=== PATIENT | female | born 1960 | race Caucasian/White ===

== ENCOUNTER 2017-03-10 14:52 | Inpatient (IN) | payer MEDICARE ==
[2017-03-10] MEDS: CYCLOBENZAPRINE 10MG TABLET PO SCH ×2 (16:59→22:16)
[2017-03-10] MEDS: GABAPENTIN 300 MG CAPSULE PO SCH ×2 (16:59→22:16)
[2017-03-10] MEDS: FUROSEMIDE 20 MG TABLET PO SCH (16:59)
[2017-03-10] MEDS: HYDROCODONE/APAP 10/325 TABLET PO SCH ×2 (16:59→22:16)
[2017-03-10] MEDS: WARFARIN 5 MG TAB PO SCH (18:27)
[2017-03-10] MEDS: WARFARIN 1 MG TABLET PO SCH (18:27)
[2017-03-10] MEDS: POTASSIUM CHLORIDE 20 MEQ TABLET PO SCH (22:15)
[2017-03-10] MEDS: ROPINIROLE HCL 1 MG TABLET PO SCH (22:16)
[2017-03-10] MEDS: CLONAZEPAM 1MG TABLET PO SCH (22:16)
--- NOTE | 2017-03-11 06:49 | History & Physical ---
History of Present Illness - Date Date of Service for History & Physical: 03/11/17 - History of Present Illness Admitting Diagnosis: Cellulitis of right proximal, lateral thigh with unerlying seroma and drain placement following hip replacement History of Present Illness: Mrs. Hagan is a 56 y/o female who is admitted to swing bed after having a protracted history of seroma of the right hip. Her course started approximately 4 years ago when she had bilateral hip replacement and subsequent revisions. She then began to develop a seroma of the right hip which saw a progressive growth since that time. Initially she went to her PCP who recommended conservative management hoping for spontaneous resolution. When there was no resolution the patient went to IR to have a drain inserted (02/22) into the pocket which eventually became infected. She had fevers, chills and a cellulitis of the right lower extremity She describes right hip pain and significant erythema surrounding the area with extension to the distal extremity. The patient was admitted to [facility] on 03/02 and was noted to have elevated white count, CRP and ESR. Xrays of the right hip showed stable implant. She was started on broad spectrum abx Vancomycin/Ceftriaxone IV, eventually changed to Vancomycin/Zosyn and cultures drawn grew MRSA. The drain was kept in place and put to suction with minimal collection while admitted. She was seen by ID while admitted and the decision was made to change abx to Daptomycin 4mg IV for another eight weeks. The patient is also to follow up with IR for drain management. She is admitted to swing [facility] for continued antibiotic therapy and rehabilitation. In addition to the above mentioned history the patient has history of DVT/PE on Coumadin, hypothyroidism, depression, anxiety, fibromyalgia, chronic hep c s/p therapy, protein s deficiency and remote hx of IVDA. General - Cognitive Patterns Speech: Normal Thought Process: Intact Thought Content: Normal Orientation: Oriented x3 - Communication Preferred Language?: [place] Resident Assistant Required: No Level of Education: College Preferred Method of Learning: Seeing, Doing Comprehension Ability: No Impairment Able to Read: Yes Able to Write: Yes Select best description of speech pattern: Clear Speech Ability to express ideas and wants: Understood Understanding verbal content: Understands - Mood and Behavior Patterns Appearance: Well Groomed Mood: Normal Attitude: Cooperative Motor Activity: Calm Affect: Appropriate - Psychosocial Well-Being Usual Living Arrangement: Spouse - Physical Functioning Activity Level: Up as tolerated Turning: Self ad kaila ROM Ability: Moves all extremities Assistive Devices: 4 Wheel Walker Ambulation Ability: Independent Bed Mobility: Independent Transfer Ability: Independent Bathing Ability: Independent Personal Hygiene: Independent Dressing Ability: Independent Eating (Feeding) Ability: Independent Toileting Ability: Independent Administer Own Medication: Independent - Continence Bowel Pattern: Normal for Patient Bladder Pattern: Normal - Dental Status Unable to examine: No Broken or loosely fitting full or partial dentures: No No natural teeth or tooth fragment(s) (edentulous): No Abnormal mouth tissue (ulcers, masses, oral lesions, etc.): No Obvious or likely cavity or broken natural teeth: Yes Inflamed or bleeding gums or loose natural teeth: No Mouth/facial pain, discomfort or difficulty chewing: No - Nutrition Screening Poor oral intake > 1 week: No Unplanned weight loss in specified time frame: No Nutrition Support via tube feedings or parenteral nutrition: No Pressure Ulcer: No Significantly underweight define as BMI <18.5 kg/m2: No Albumin <2.5mg/dL: No Persistent nausea/vomiting/diarrhea >3 days: No Difficulty chewing/swallowing/mouth sores: No Admitting Diagnosis: No Nutrition Risk Score: Low Risk Review of Systems Constitutional: Reports: As per HPI. Denies: Chills, Fever, Malaise, Night sweats, Weakness, Weight change Eyes: Reports: As per HPI. Denies: Eye discharge, Eye pain, Photophobia, Vision change ENT: Reports: As per HPI. Denies: Congestion, Dental pain, Ear pain, Epistaxis , Hearing loss, Throat pain Respiratory: Reports: As per HPI. Denies: Cough, Dyspnea, Hemoptysis, Stridor, Wheezes Cardiovascular: Reports: As per HPI. Denies: Arrhythmia, Chest pain, Dyspnea on exertion, Edema, Murmurs, Orthopnea, Palpitations, Paroxysmal nocturnal dyspnea, Rheumatic Fever, Syncope Endocrine: Reports: As per HPI. Denies: Fatigue, Heat or cold intolerance, Polydipsia, Polyuria Gastrointestinal: Reports: As per HPI. Denies: Abdominal pain, Constipation, Diarrhea, Hematemesis, Hematochezia, Melena, Nausea, Vomiting Genitourinary: Reports: As per HPI. Denies: Abnormal menses, Discharge, Dyspareunia, Dysuria, Frequency, Hematuria, Incontinence, Retention, Urgency Musculoskeletal: Reports: As per HPI. Denies: Arthralgia, Back pain, Gout, Joint swelling, Myalgia, Neck pain Skin: Reports: Change in color (over right lower extremity ) Neurological: Reports: Other (ambulates with a walker ) Psychiatric: Reports: As per HPI. Denies: Anxiety, Auditory hallucinations, Depression, Homicidal thoughts, Suicidal thoughts, Visual hallucinations Past Medical History - SOCIAL HISTORY Smoking Status: Current every day smoker Alcohol Use: None Alcohol Use Comment: 5 years no alcohol - SURGICAL HISTORY Past Surgical History: tonsillectomy 1969. x1 left shoulder- "shaved the bone" . laparscopic left shoulder torn ligaments repaired, then laparscopic surgery to remove apolinar. Sep, 2012- Left hip replacement. Dec, 2012- Right hip replacement. Sep, 2016- left hip revision. November,- left total hip replacement - RESPIRATORY Hx Respiratory Disorders: Yes Hx Pulmonary Embolism: Yes (03/2016) Hx Sleep Apnea: Yes Hx of CPAP: No - CARDIOVASCULAR Hx Cardio Disorders: Yes Hx Deep Vein Thrombosis: Yes (multiple) Hx Edema: Yes Hx Palpitations: Yes - GI Hx GI Disorders: Yes Hx Hepatitis/Jaundice: Yes (hepatitis C) - Hx Genitourinary Disorders: No - ENDOCRINE Hx Endocrine Disorders: Yes Hx Thyroid Disease: Yes - MUSCULOSKELETAL Hx Musculoskeletal Disorders: Yes Hx Arthritis: Yes Hx Fibromyalgia: Yes - PSYCH Hx Psych Problems: Yes Hx Anxiety: Yes Hx Depression: Yes - HEMATOLOGY/ONCOLOGY Hx Bruising: Yes (on coumadin) Hx Clotting Problems: Yes (protein C or protein S deficiency) Hx Blood Transfusions: Yes Hx Blood Transfusion Reaction: No Family Medical History Any Significant Family History?: Yes Hx Alcohol Use: Grandparents Hx Cancer: Mother, Grandparents *Cancer Comment: mom- endeometrial ca, grandmother from lymphoma Hx Depression: Mother, Brother/Sister Hx Liver Disease: Grandparents *Liver Comment: maternal grandfather cirrhosis H&P Meds/Allergies - Allergies Allergies: Allergies Allergy/AdvReac Type Severity Reaction Status Date / Time buprenorphine AdvReac PT UNSURE Verified 03/10/17 15:50 OF REACTION naltrexone AdvReac PT UNSURE Verified 03/10/17 15:50 OF REACTION - Home Medications Home Medications Medication Instructions Recorded Confirmed Last Taken Clonazepam [Clonazepam] 1 mg PO BID 03/10/17 03/10/17 Unknown Cyclobenzaprine HCl 10 mg PO TID 03/10/17 03/10/17 Unknown Furosemide [Lasix] 20 mg PO BID 03/10/17 03/10/17 Unknown Gabapentin [Neurontin] 300 mg PO TID 03/10/17 03/10/17 Unknown Hydrocodone/Acetaminophen [[place]wood 2 tab PO Q8HR PRN 03/10/17 03/10/17 Unknown 10mg/325mg] Levothyroxine Sodium [Synthroid] 150 mcg PO DAILY 03/10/17 03/10/17 Unknown Methadone HCl [Methadose] 35 mg PO DAILY 03/10/17 03/10/17 Unknown Paroxetine HCl [Paxil] 40 mg PO DAILY 03/10/17 03/10/17 Unknown Potassium Chloride 40 meq PO BID 03/10/17 03/10/17 Unknown Ropinirole HCl [Requip] 4 mg PO QHS 03/10/17 03/10/17 Unknown Warfarin Sodium [Coumadin] 3 mg PO QHS 03/10/17 03/10/17 Unknown Warfarin Sodium [Coumadin] 10 mg PO QHS 03/10/17 03/10/17 Unknown - Active Medications Active Medications: Current Medications Hydrocodone Bitart/Acetaminophen ([place]wood 10mg/325mg) 2 each PO Q8HR ON LICENSE OF [facility] Last Admin: 03/10/17 22:16 Dose: 2 each Clonazepam (Klonopin) 1 mg PO BID ON LICENSE OF [facility] Last Admin: 03/10/17 22:16 Dose: 1 mg Cyclobenzaprine HCl (Flexeril) 10 mg PO TID ON LICENSE OF [facility] Last Admin: 03/10/17 22:16 Dose: 10 mg Daptomycin (Cubicin) 600 mg IV 1500 ON LICENSE OF [facility] Furosemide (Lasix) 20 mg PO BIDDIUR ON LICENSE OF [facility] Last Admin: 03/10/17 16:59 Dose: 20 mg Gabapentin (Neurontin) 300 mg PO TID ON LICENSE OF [facility] Last Admin: 03/10/17 22:16 Dose: 300 mg Heparin Sodium (Porcine) () 500 unit IVP 1530 ON LICENSE OF [facility] Levothyroxine Sodium (Synthroid) 150 mcg PO DAILYTHY ON LICENSE OF [facility] Methadone HCl (Dolophine) 35 mg PO DAILY ON LICENSE OF [facility] Nicotine (Nicotine 21mg) 1 patch TD DAILY ON LICENSE OF [facility] Paroxetine HCl (Paxil) 40 mg PO DAILY ON LICENSE OF [facility] Potassium Chloride (Klor-Con) 40 meq PO BID ON LICENSE OF [facility] Last Admin: 03/10/17 22:15 Dose: 40 meq Ropinirole HCl (Requip) 4 mg PO QHS ON LICENSE OF [facility] Last Admin: 03/10/17 22:16 Dose: 4 mg Sodium Chloride () 10 ml IVP 1500 ON LICENSE OF [facility] Warfarin Sodium (Coumadin) 10 mg PO 1800 ON LICENSE OF [facility] Last Admin: 03/10/17 18:27 Dose: 10 mg Warfarin Sodium (Coumadin) 3 mg PO 1800 ON LICENSE OF [facility] Last Admin: 03/10/17 18:27 Dose: 3 mg Physical Exam - Vital Signs Vital Signs: Vital Signs - Last 24 Hrs Temp Pulse Resp BP Pulse Ox 03/10/17 20:00 97.6 F 80 20 109/72 95 03/10/17 15:45 99.2 F 95 H 18 131/82 93 L - General General Appearance: Alert, Oriented x3, Cooperative, No acute distress - Head Head exam: Normal inspection - Eye Eye exam: Normal appearance, PERRL Pupils: Normal accommodation - ENT ENT exam: Normal exam, Mucous membranes moist, Normal external ear exam, Normal orophraynx, TM's normal bilaterally Ear exam: Normal external inspection. negative: External canal tenderness Nasal Exam: Normal inspection. negative: Discharge, Sinus tenderness Mouth exam: Normal external inspection, Tongue normal - Respiratory Respiratory exam: Normal lung sounds bilaterally. negative: Respiratory distress - Cardiovascular Cardiovascular Exam: Regular rate, Normal rhythm, Normal heart sounds Peripheral Pulses: 2+: Radial (R), Radial (L) - GI/Abdominal GI/Abdominal exam: Soft, Normal bowel sounds. negative: Tenderness - Rectal Rectal exam: Deferred - exam: Deferred - Extremities Extremities exam: Other (right hip edematous, clean dressing with drain to suction, noted erythema w/ extension distally. ) - Neurological Neurological exam: Alert, CN II-XII intact, Normal gait (ambulates with a walker ), Oriented X3, Reflexes normal - Psychiatric Psychiatric exam: Normal affect, Normal mood - Skin Skin exam: Erythema (RLE ) Discharge Potential - Discharge Needs Community Services Used Prior to Admission: Physical Therapy Patient Discharge Plan Description: Return Home Community Services Needed at Discharge: Occupational Therapy, Physical Therapy Discharge Needs Comment: oupatient therapy prior to coming in, has used residential in the past Plan - Swing Bed Certification Initial Certification Due: 03/10/17 14 Day Re-Cert Due: 03/24/17 44 Day Re-Cert Due: 04/23/17 74 Day Re-Cert Due: 05/23/17 - Detailed Diagnosis and Plan (1) Seroma, infected, postoperative Plan: - s/p insertion of drain w/ suction on 02/22. Recent admission to [facility] and started on broad-spectrum abx. - cultures grew MRSA on admission. Changed to Cubicin, currently on day #5 via right UE PICC line - Pt to follow up with ID (Dr. Varghese) 03/21 and IR for drain/wound check in about 2 weeks. - daily PT/OT for conditioning, ambulates independently. - repeat labs next week Current Visit: Yes Status: Acute Base Code: [id number] - (2) MRSA (methicillin resistant staph aureus) culture positive Plan: - report of MRSA as per [facility] BCX : gram positive cocci in clusters. ID: MRSA - currently on Cubicin QD x 8 weeks. RUE PICC line. To culture as per ID recs. - contact precautions ordered 03/11/17 17:07 Current Visit: Yes Status: Acute Base Code: Z22.322 - CARRIER OR SUSPECTED CARRIER OF METHICILLIN RESIS STAPH (3) Fibromyalgia Plan: - continue Gabapentin 300mg TID Current Visit: Yes Status: Acute Base Code: M79.7 - FIBROMYALGIA (4) Depression with anxiety Plan: - currently stable on Fluoxetine 40mg and Klonipin 1mg BID Current Visit: Yes Status: Acute Base Code: F41.8 - OTHER SPECIFIED ANXIETY DISORDERS (5) History of bilateral total hip arthroplasty Plan: - hx of bilateral total athroplasty with multiple revisions. - on [place]wood 10/325mg 2 tabs Q8H, Cyclobenzaprine 10mg TID, - ambulates well with walker, PT/OT to follow for daily evaluation. Current Visit: Yes Status: Acute Base Code: Z96.643 - PRESENCE OF ARTIFICIAL HIP JOINT, BILATERAL (6) Hypothyroid Plan: - will continue dosing of Levothyroxine at 150mcg QD Current Visit: Yes Status: Acute Base Code: E03.9 - HYPOTHYROIDISM, UNSPECIFIED (7) History of heroin abuse Plan: - D/C heroine 5 years ago. - on Methadone 35mg QAM Current Visit: Yes Status: Acute Base Code: Z87.898 - PERSONAL HISTORY OF OTHER SPECIFIED CONDITIONS (8) History of DVT (deep vein thrombosis) Plan: - on Warfarin 13mg QD, pharmacy to dose - INR to be followed Current Visit: Yes Status: Acute Base Code: Z86.718 - PERSONAL HISTORY OF OTHER VENOUS THROMBOSIS AND EMBOLISM (9) Obesity, morbid, BMI 50 or higher Current Visit: Yes Status: Acute Base Code: E66.01 - MORBID (SEVERE) OBESITY DUE TO EXCESS CALORIES (10) Inpatient admission status Plan: Patient has chronic seroma of the right hip s/p drain insertion which requires extended IV antibiotic treatment. Current Visit: Yes Status: Acute Base Code: [id number] - (11) Code status needs review Plan: Will discuss with patient. Current Visit: Yes Status: Acute Base Code: [id number] - - Disposition SW to f/u next week regarding outpatient visits with ID and IR.
[2017-03-11] MEDS: LEVOTHYROXINE SODIUM 150 MCG TABLET PO SCH (06:53)
[2017-03-11] MEDS: HYDROCODONE/APAP 10/325 TABLET PO SCH ×3 (06:53→22:10)
[2017-03-11] MEDS: NICOTINE 21 MG/24 HOUR PATCH TD SCH (09:26)
[2017-03-11] MEDS: GABAPENTIN 300 MG CAPSULE PO SCH ×3 (09:26→22:09)
[2017-03-11] MEDS: CLONAZEPAM 1MG TABLET PO SCH ×2 (09:26→22:09)
[2017-03-11] MEDS: FUROSEMIDE 20 MG TABLET PO SCH ×2 (09:26→15:01)
[2017-03-11] MEDS: PAROXETINE HCL 10 MG TABLET PO SCH (09:26)
[2017-03-11] MEDS: CYCLOBENZAPRINE 10MG TABLET PO SCH ×3 (09:26→22:09)
[2017-03-11] MEDS: METHADONE HCL 5 MG TABLET PO SCH (09:26)
[2017-03-11] MEDS: POTASSIUM CHLORIDE 20 MEQ TABLET PO SCH ×2 (09:26→22:09)
[2017-03-11 10:51] LABS: INR 2.01; PROTHROMBIN TIME (PATIENT) 21.9 SECONDS (9.5-12.1)
--- NOTE | 2017-03-11 11:54 | Rehab Evaluation ---
Patient Information - Patient Information Diagnosis: cellulitis of R proximal, lateral thigh w/ underlying seroma post hip sx Ordered Treatment: OT Evaluate and Treat Status: Initial Evaluation History: Detail (Pt. reported hx of R hip replacement, L hip dislocation x2, L shd laproscopic sx x3, and dx of bilateral CTS in 2000.) Past Medical/Surgical Hx: PAST MEDICAL/SURGICAL HISTORY Past Surgical History tonsillectomy 1970 x1 left shoulder- "shaved the bone" laparscopic left shoulder torn ligaments repaired, then laparscopic surgery to remove apolinar Sep, 2012- Left hip replacement Dec, 2012- Right hip replacement Sep, 2016- left hip revision November,- left total hip replacement PMH - Respiratory Hx Respiratory Disorders Yes Hx Pulmonary Embolism Yes: 03/2016 Hx Sleep Apnea Yes Hx of CPAP No PMH - Cardiovascular Hx Cardiovascular Disorders Yes Hx Deep Vein Thrombosis Yes: multiple Hx Edema Yes Hx Palpitations Yes PMH - GI Hx Gastrointestinal Disorders Yes Hx Hepatitis/Jaundice Yes: hepatitis C PMH - Hx Genitourinary Disorders No PMH - Endocrine Hx Endocrine Disorders Yes Hx Thyroid Disease Yes PMH - Musculoskeletal Hx Musculoskeletal Disorders Yes Hx Arthritis Yes Hx Fibromyalgia Yes PMH - Psych Hx Psychiatric Problems Yes Hx Anxiety Yes Hx Depression Yes PMH - Hematology/Oncology Hx Bruising Yes: on coumadin Hx Clotting Problems Yes: protein C or protein S deficiency Hx Blood Transfusion Reaction No Premorbid Status: Detail (Pt. Ind. with all basic ADL's (bathing, dressing, meal prep, etc.). Pt. receives assistance from significant other with many IADL' s, including grocery shopping, laundry (d/t stairs), and heavy housework. Pt. reports she is able to use the kitchen, do dishes, and clean the bathroom independently. Pt. uses a 4WW for functional ambulation, except in the kitchen ( doesn't fit) where she uses the counter for support.) Social History: Detail (Pt. lives with significant other in a single floor apartment. Pt. must climb 3 sets of 8 steps (has bilateral railings) to access apartment.) Precautions: [place], Fall - Time With Patient Total Time Spent With Patient (Min): 30 Subjective Information - Subjective Information Per Patient (Pt. reports numerous falls, including in store parking lots. Pt. also reports frequently dropping things and difficulty gripping (has been a problem for years).) Objective Data - Pain Pain Present: Yes (10/16 pain L hip; aches in general, sharp pain with weight bearing activities.) - Mental Status Patient Orientation: Oriented x3 - Visual Perception Appears within normal limits for therapeutic activities - ROM Within normal limits (BUE) - Strength/Tone Not within normal limits (LUE 4-/5 (pt. reported she has noticed it is weaker than RUE), majority of weakness coming from shd. RUE 5/5.) - Coordination Appears within normal limits for therapeutic activities - Bed Mobility Independent - Transfers Independent (sit<>stand EOB to 4WW) - Balance Balance Sitting: Good Balance Standing: Fair - Sensation Intact (BUE lt touch in tact all fingertips.) - ADL's/IADL's Detail (Pt. demo. ability to don/doff bilateral socks. Pt. is aware of available AE (i.e. veterinary receptionist, sock aid, etc.) and adaptive dressing techniques from therapy services post hip sx (pt. described how to use, and voiced understanding). Pt. demo. functional ambulation from bed to/from bathroom. Pt. described how she showers at home. Pt. has a raised toilet seat, tub/shower with grab bar, fishing boat captain strips, and fixed shower head. Pt. stands in the shower and reported no problems with stepping over tub ledge. Pt. also has a veterinary receptionist, but has not felt the need to use it.) Therapy Assessment - Therapy Assessment Detail (Pt. would benefit from 1-2 skilled OT sessions to teach BUE HEP. Pt. has a positive support system and is modified ind. with ADL's.) Patient Education - Patient Education Teaching Topic: Community Resources (Discussed option of obtaining OTC BUE CTS splints to wear at night, and wear to get them.), Equipment Use, Exercise/ Activity Response: Verbalize Understanding Teaching Method: Discussion Teaching Recipient: Patient Barriers To Learning: None Problem List - Problem List Occupational Therapy Problem List: Detail (LUE weakness (shd and fishing boat captain strength)) Goals - Goals Occupational Therapy Goals: 1) Pt. will be independent in performing BUE HEP to increase strength. 2) Pt. will demo. understanding of CTS dx and potential adaptive strategies to reduce dropping items. Prognosis - Prognosis Good Plan - Plan Occupational Therapy Plan: Pt will be seen 1-2 sessions M-F during rehab business hours during her swing bed stay.
--- NOTE | 2017-03-11 11:54 | Rehab Evaluation ---
Patient Information - Patient Information Diagnosis: Cellulitis of R proximal, lateral thigh with underlying seroma Ordered Treatment: PT Evaluate and Treat Status: Initial Evaluation Past Medical/Surgical Hx: PAST MEDICAL/SURGICAL HISTORY Past Surgical History tonsillectomy 1970 x1 left shoulder- "shaved the bone" laparscopic left shoulder torn ligaments repaired, then laparscopic surgery to remove apolinar Sep, 2012- Left hip replacement Dec, 2012- Right hip replacement Sep, 2016- left hip revision November,- left total hip replacement PMH - Respiratory Hx Respiratory Disorders Yes Hx Pulmonary Embolism Yes: 03/2016 Hx Sleep Apnea Yes Hx of CPAP No PMH - Cardiovascular Hx Cardiovascular Disorders Yes Hx Deep Vein Thrombosis Yes: multiple Hx Edema Yes Hx Palpitations Yes PMH - GI Hx Gastrointestinal Disorders Yes Hx Hepatitis/Jaundice Yes: hepatitis C PMH - Hx Genitourinary Disorders No PMH - Endocrine Hx Endocrine Disorders Yes Hx Thyroid Disease Yes PMH - Musculoskeletal Hx Musculoskeletal Disorders Yes Hx Arthritis Yes Hx Fibromyalgia Yes PMH - Psych Hx Psychiatric Problems Yes Hx Anxiety Yes Hx Depression Yes PMH - Hematology/Oncology Hx Bruising Yes: on coumadin Hx Clotting Problems Yes: protein C or protein S deficiency Hx Blood Transfusion Reaction No Social History: Detail (Pt. reports she lives in a single story apartment. Pt. does have to ascend 3 sets of 8 steps to get to her apartment building. There is a railing on both sides for each set of steps. Pt. lives with her significant other and states he is able to help as needed with tasks around the apartment. Pt. reports she has a raised toilet seat and a grab bar in her shower. Pt. denies the need of a shower chair and states she is able to remain standing while showering. Pt. reports she is able to perform most ADLs at home including dishes and cleaning of counters/bathroom and kitchen sinks. Pt. reports difficulty with any tasks that involves bending or squatting. Pt. is unable to vaccum , and not do her laundry because the laundry room is down stairs. Pt. reports no difficulty with ascending steps, but states it is difficult to descend steps. Pt. reports she ambulates with a front wheeled walker at all times. Pt. tried ambulating with a single point cane, but reports she felt unstable and was not comfortable using it. Pt. reports she is apprehensive to weight bear on L LE secondary to pain. Pt. also states she feels as if it is natural to weight bear more on her R side compared to the L. Pt. reports pain in her L hip at a 6/10 right now and doesn't report any discomfort in her right hip.) Precautions: [place], Fall - Time With Patient Total Time Spent With Patient (Min): 30 Treatment Procedures: Detail (Completed inpatient PT initail evaluation. Pt. independently ambulated a total of 66 ft. with 4-wheeled walker, CGA x1.) Subjective Information - Subjective Information Per Patient (See social history.) Objective Data - Pain Pain Present: Yes Pain Intensity: 6 (L hip) Pain Scale Used: Numeric (1 - 10) - Mental Status Patient Orientation: Oriented x3 - Visual Perception Appears within normal limits for therapeutic activities - ROM Within normal limits - Strength/Tone Not within normal limits (L hip flexion 4+/5, ABD 3+/5, ADD 4+/5 IR 5/5, ER 3/ 5. L knee flexion 4-/5, extension 5/5. L ankle DF 5/5, PF 5/5 R hip flexion 3+/5 , ABD 3+/5, ADD 4+/5, IR 5/5, ER 3+/5. R knee flexion and extension 5/5. R ankle DF/PF 5/5) - Coordination Appears within normal limits for therapeutic activities - Bed Mobility Independent (The patient was indepenedent with supine to and from sit and scooting up in bed.) - Transfers Independent (The patient was independent with sit to and from stand transfer.) - Balance Balance Sitting: Good Balance Standing: Good - Sensation Intact - Gait Detail (Pt. ambulates independently with 4-wheeled walker. The patient's ambulation distance was limited secondary to isolation restrictions. Pt. exhibits decreased weight bearing on L LE (<50%), decreased stride length on the L, bilateral tibial IR, and bilateral hip ADD/IR, and a slight antalgic pattern to the L with ambulation.) Therapy Assessment - Therapy Assessment Detail (Pt. exhibits decreased LE strength, unequal weight bearing of LEs, core weakness and instability, and gait impairments. Pt. is necessary to be seen by inpatient PT to help improve her impairments and to meet goals for PT.) Patient Education - Patient Education Teaching Topic: Exercise/Activity (LE strengthening exercises.) Response: Verbalize Understanding Teaching Method: Discussion Teaching Recipient: Patient Barriers To Learning: None Problem List - Problem List Physical Therapy Problem List: Detail (1. LE muscle weakness 2. Gait impairments 3. Lack of home exercise plan 4. Unequal weight bearing of LE) Goals - Goals Physical Therapy Goals: 1. Pt. will be independent with, verbalize, and demonstrate understanding of home exercise plan provided by PT. 2. Pt. will improve hip musculature strength to help improve gait mechanics while displaying minimal antalgic gattern and decreased hip ADD/IR with ambulation. 3. Pt. will exhibit equal weight bearing of lower extremities while standing. 4. Pt. will report decreased apprehension to weight bear on her L LE with standing and ambulation. Prognosis - Prognosis Good Plan - Plan Physical Therapy Plan: Pt. will be seen 1-2x a day, Tuesday-Tuesday for LE strengthening exercises, gait training, emphasis on proper gait pattern.
[2017-03-11] MEDS: 0.9 % SODIUM CHLORIDE 10ML SYR IVP SCH (14:59)
[2017-03-11] MEDS: DAPTOMYCIN 500 MG/VIAL IV SCH (14:59)
[2017-03-11] MEDS: HEPARIN SODIUM FLUSH 100 UNITS/ML SYR 5ML IVP SCH (15:00)
[2017-03-11] MEDS: WARFARIN 1 MG TABLET PO SCH (18:33)
[2017-03-11] MEDS: WARFARIN 5 MG TAB PO SCH (18:34)
[2017-03-11] MEDS: ROPINIROLE HCL 1 MG TABLET PO SCH (22:09)
[2017-03-12] MEDS: LEVOTHYROXINE SODIUM 150 MCG TABLET PO SCH (06:12)
[2017-03-12] MEDS: HYDROCODONE/APAP 10/325 TABLET PO SCH ×3 (06:12→21:10)
[2017-03-12] MEDS: FUROSEMIDE 20 MG TABLET PO SCH ×2 (11:13→17:31)
[2017-03-12] MEDS: POTASSIUM CHLORIDE 20 MEQ TABLET PO SCH ×2 (11:13→21:10)
[2017-03-12] MEDS: GABAPENTIN 300 MG CAPSULE PO SCH ×3 (11:13→21:10)
[2017-03-12] MEDS: CYCLOBENZAPRINE 10MG TABLET PO SCH ×3 (11:14→21:10)
[2017-03-12] MEDS: NICOTINE 21 MG/24 HOUR PATCH TD SCH (11:14)
[2017-03-12] MEDS: PAROXETINE HCL 10 MG TABLET PO SCH (11:14)
[2017-03-12] MEDS: METHADONE HCL 5 MG TABLET PO SCH (11:14)
[2017-03-12] MEDS: CLONAZEPAM 1MG TABLET PO SCH ×2 (11:14→21:10)
[2017-03-12] MEDS: 0.9 % SODIUM CHLORIDE 10ML SYR IVP SCH (14:25)
[2017-03-12] MEDS: HEPARIN SODIUM FLUSH 100 UNITS/ML SYR 5ML IVP SCH ×2 (14:25→16:28)
[2017-03-12] MEDS: DAPTOMYCIN 500 MG/VIAL IV SCH (14:25)
[2017-03-12] MEDS: WARFARIN 5 MG TAB PO SCH (17:32)
[2017-03-12] MEDS: WARFARIN 1 MG TABLET PO SCH (17:35)
[2017-03-12] MEDS: ROPINIROLE HCL 1 MG TABLET PO SCH (21:10)
[2017-03-13] MEDS: LEVOTHYROXINE SODIUM 150 MCG TABLET PO SCH (06:20)
[2017-03-13] MEDS: HYDROCODONE/APAP 10/325 TABLET PO SCH ×3 (06:20→22:01)
[2017-03-13 09:53] LABS: INR 2.08; PROTHROMBIN TIME (PATIENT) 22.6 SECONDS (9.5-12.1)
[2017-03-13] MEDS: CLONAZEPAM 1MG TABLET PO SCH ×2 (10:50→22:01)
[2017-03-13] MEDS: PAROXETINE HCL 10 MG TABLET PO SCH (10:50)
[2017-03-13] MEDS: METHADONE HCL 5 MG TABLET PO SCH (10:50)
[2017-03-13] MEDS: CYCLOBENZAPRINE 10MG TABLET PO SCH ×3 (10:50→22:01)
[2017-03-13] MEDS: POTASSIUM CHLORIDE 20 MEQ TABLET PO SCH ×2 (10:50→22:01)
[2017-03-13] MEDS: GABAPENTIN 300 MG CAPSULE PO SCH ×3 (10:50→22:01)
[2017-03-13] MEDS: FUROSEMIDE 20 MG TABLET PO SCH ×2 (10:51→15:18)
[2017-03-13] MEDS: NICOTINE 21 MG/24 HOUR PATCH TD SCH (10:51)
[2017-03-13] MEDS: DAPTOMYCIN 500 MG/VIAL IV SCH (15:18)
[2017-03-13] MEDS: HEPARIN SODIUM FLUSH 100 UNITS/ML SYR 5ML IVP SCH (15:18)
[2017-03-13] MEDS: 0.9 % SODIUM CHLORIDE 10ML SYR IVP SCH (15:18)
[2017-03-13] MEDS: WARFARIN 1 MG TABLET PO SCH (18:12)
[2017-03-13] MEDS: WARFARIN 5 MG TAB PO SCH (18:12)
[2017-03-13] MEDS: ROPINIROLE HCL 1 MG TABLET PO SCH (22:01)
[2017-03-14] MEDS: LEVOTHYROXINE SODIUM 150 MCG TABLET PO SCH (06:13)
[2017-03-14] MEDS: HYDROCODONE/APAP 10/325 TABLET PO SCH (06:13)
[2017-03-14] MEDS: METHADONE HCL 5 MG TABLET PO SCH (09:37)
[2017-03-14] MEDS: PAROXETINE HCL 10 MG TABLET PO SCH (09:41)
[2017-03-14] MEDS: POTASSIUM CHLORIDE 20 MEQ TABLET PO SCH ×3 (09:42→23:02)
[2017-03-14] MEDS: CYCLOBENZAPRINE 10MG TABLET PO SCH ×3 (09:42→23:02)
[2017-03-14] MEDS: GABAPENTIN 300 MG CAPSULE PO SCH ×3 (09:43→23:02)
[2017-03-14] MEDS: NICOTINE 21 MG/24 HOUR PATCH TD SCH (09:43)
[2017-03-14] MEDS: FUROSEMIDE 20 MG TABLET PO SCH ×2 (09:43→17:35)
[2017-03-14] MEDS: CLONAZEPAM 1MG TABLET PO SCH ×2 (09:43→23:02)
--- NOTE | 2017-03-14 12:04 | Physical Therapy Tx Note ---
Physical Therapy Tx Note - Treatment Note Total Time Spent With Patient: 40 Physical Therapy Tx Note: Detail (Pt. reports that the pain in her L hip is a 6/ 10 right now. She reports that increased weight bearing on the L LE increases her pain. Pt. independently ambulated approximately 200ft with a four-wheeled walker with no assist from PT. Patient completed therapeutic exercise consisting of standing hip ABD and hip extension exercises using the dresser for support, not her walker, 2x10 reps for bilateral LEs, seated marches in bed x2 min, supine with bilat knees bent hip ABD with red resistance band, 2x10 reps , hip adductor squeezes with pillow between the legs, 2x10 reps, supine core isometrics with alternating march x2 min, and abdominal isometric holds 1x10 reps. Pt. required verbal cueing to lock her walker if she completes her standing exercises with her walker for support. Pt. required tactile and verbal cueing to activate her lower abdominals when performing core stabilization exercises. Pt. verbalized understanding of her exercises and the importance of core activation. Continue per POC.) Physical Therapy Problem List: Detail (1. LE muscle weakness 2. Gait impairments 3. Lack of home exercise plan 4. Unequal weight bearing of LE) Physical Therapy Goals: 1. Pt. will be independent with, verbalize, and demonstrate understanding of home exercise plan provided by PT. 2. Pt. will improve hip musculature strength to help improve gait mechanics while displaying minimal antalgic gattern and decreased hip ADD/IR with ambulation. 3. Pt. will exhibit equal weight bearing of lower extremities while standing. 4. Pt. will report decreased apprehension to weight bear on her L LE with standing and ambulation. Prognosis: Good Physical Therapy Plan: Pt. will be seen 1-2x a day, Tuesday-Tuesday for LE strengthening exercises, gait training, emphasis on proper gait pattern.
[2017-03-14] MEDS: HYDROCODONE/APAP 10/325 TABLET PO PRN ×2 (13:26→15:04)
--- NOTE | 2017-03-14 15:15 | Occupational Therapy Tx Note ---
Occupational Therapy Tx Note - Treatment Note Tolerated: Good Total Time Spent With Patient: 35 Occupational Therapy Treatment Note: Detail (Educ. provided in BUE HEP: Shd flex , ext, abd/add, horiz abd, biceps, triceps, wrist flex, ext, sup, pronation, ulnar/radial deviation. Visual handouts were provided and reviewed. Exercises were demo. with green theraband and 1 lb. wrist free weights. Pt. demo. ability to perform with mod verbal cues for proper exercise technique. Options to grade exercises were discussed to allow pt to progress, and educ. provided to know when her body is ready to progress. Green and red theraband was provided. Pt. stated she plans to use soup cans or buy free weights when she gets home. Educ. provided in CTS precautions during exercising. P: Follow-up with pt. one more session this week to ensure pt. understanding of HEP, and then d/c from OT services.) Occupational Therapy Problem List: Detail (LUE weakness (shd and director home strength)) Occupational Therapy Goals: 1) Pt. will be independent in performing BUE HEP to increase strength. 2) Pt. will demo. understanding of CTS dx and potential adaptive strategies to reduce dropping items. Prognosis: Good Occupational Therapy Plan: Pt will be seen 1-2 sessions M-F during rehab business hours during her swing bed stay.
[2017-03-14] MEDS: 0.9 % SODIUM CHLORIDE 10ML SYR IVP SCH (16:40)
[2017-03-14] MEDS: DAPTOMYCIN 500 MG/VIAL IV SCH (16:41)
[2017-03-14] MEDS: HEPARIN SODIUM FLUSH 100 UNITS/ML SYR 5ML IVP SCH (16:41)
[2017-03-14] MEDS: WARFARIN 1 MG TABLET PO SCH (17:33)
[2017-03-14] MEDS: WARFARIN 5 MG TAB PO SCH (17:34)
[2017-03-14] MEDS: ROPINIROLE HCL 1 MG TABLET PO SCH (23:02)
[2017-03-15] MEDS: LEVOTHYROXINE SODIUM 150 MCG TABLET PO SCH (06:42)
[2017-03-15] MEDS: METHADONE HCL 5 MG TABLET PO SCH (09:39)
[2017-03-15] MEDS: GABAPENTIN 300 MG CAPSULE PO SCH ×3 (09:40→22:05)
[2017-03-15] MEDS: PAROXETINE HCL 10 MG TABLET PO SCH (09:40)
[2017-03-15] MEDS: FUROSEMIDE 20 MG TABLET PO SCH ×2 (09:40→15:04)
[2017-03-15] MEDS: CLONAZEPAM 1MG TABLET PO SCH ×2 (09:40→22:05)
[2017-03-15] MEDS: CYCLOBENZAPRINE 10MG TABLET PO SCH ×3 (09:40→22:05)
[2017-03-15] MEDS: POTASSIUM CHLORIDE 20 MEQ TABLET PO SCH ×2 (09:41→22:05)
[2017-03-15] MEDS: NICOTINE 21 MG/24 HOUR PATCH TD SCH (09:41)
[2017-03-15] MEDS: HYDROCODONE/APAP 10/325 TABLET PO PRN (11:05)
[2017-03-15] MEDS ORDERED: HYDROCODONE/APAP 10/325 TABLET PO PRN (12:57)
--- NOTE | 2017-03-15 12:57 | Physical Therapy Tx Note ---
Physical Therapy Tx Note - Treatment Note Tolerated: Good Total Time Spent With Patient: 30 Physical Therapy Tx Note: Detail (The patient ambulated with 4 wheeled walker Independently a distance of 600 feet x 1 on level and carpeted surfaces. The patient completed the following core/LE strengthening exercises: abdominal isometrics, hooklying abdominal isometrics, seated abdominal leans all x 10 reps , supine hip adductor squeezes and hip abduction with red band x 15 reps. The patient tolerated treatment well and was told she could walk in hallway with isolation gown.) Physical Therapy Problem List: Detail (1. LE muscle weakness 2. Gait impairments 3. Lack of home exercise plan 4. Unequal weight bearing of LE) Physical Therapy Goals: 1. Pt. will be independent with, verbalize, and demonstrate understanding of home exercise plan provided by PT. 2. Pt. will improve hip musculature strength to help improve gait mechanics while displaying minimal antalgic gattern and decreased hip ADD/IR with ambulation. 3. Pt. will exhibit equal weight bearing of lower extremities while standing. 4. Pt. will report decreased apprehension to weight bear on her L LE with standing and ambulation. Physical Therapy Plan: Pt. will be seen 1-2x a day, Tuesday-Tuesday for LE strengthening exercises, gait training, emphasis on proper gait pattern.
[2017-03-15] MEDS: HEPARIN SODIUM FLUSH 100 UNITS/ML SYR 5ML IVP SCH (15:04)
[2017-03-15] MEDS: DAPTOMYCIN 500 MG/VIAL IV SCH (15:04)
[2017-03-15] MEDS: 0.9 % SODIUM CHLORIDE 10ML SYR IVP SCH (15:04)
[2017-03-15] MEDS: WARFARIN 1 MG TABLET PO SCH (17:33)
[2017-03-15] MEDS: WARFARIN 5 MG TAB PO SCH (17:33)
[2017-03-15] MEDS: ROPINIROLE HCL 1 MG TABLET PO SCH (22:05)
[2017-03-16] MEDS: LEVOTHYROXINE SODIUM 150 MCG TABLET PO SCH (06:27)
[2017-03-16] MEDS: GABAPENTIN 300 MG CAPSULE PO SCH ×3 (09:38→21:43)
[2017-03-16] MEDS: CLONAZEPAM 1MG TABLET PO SCH ×2 (09:38→21:43)
[2017-03-16] MEDS: FUROSEMIDE 20 MG TABLET PO SCH ×2 (09:38→15:46)
[2017-03-16] MEDS: PAROXETINE HCL 10 MG TABLET PO SCH (09:38)
[2017-03-16] MEDS: POTASSIUM CHLORIDE 20 MEQ TABLET PO SCH ×2 (09:38→21:43)
[2017-03-16] MEDS: METHADONE HCL 5 MG TABLET PO SCH (09:39)
[2017-03-16] MEDS: NICOTINE 21 MG/24 HOUR PATCH TD SCH (09:39)
[2017-03-16] MEDS: CYCLOBENZAPRINE 10MG TABLET PO SCH ×3 (09:39→21:43)
--- NOTE | 2017-03-16 11:34 | Physical Therapy Tx Note ---
Physical Therapy Tx Note - Treatment Note Total Time Spent With Patient: 60 Physical Therapy Tx Note: Detail (Pt. rates pain 7/10 today in her L hip. Pt. was very excited to be able to come up stairs to work with physical therapy. Pt. completed 10 min on Nustep, level 2. Pt. completed ther ex of lateral side stepping with squats for 32 ft to the right and 32 ft to the left, lateral side stepping with red band resisting hip ABD for 32 ft to the right, and 32 ft to the left, seated chopping pattern focusing on core activation and stabilization with red band, 1x10 bliat, 10 trunk backward leans with 2 second core isometric hold while sitting on half bosu ball, 10 backward trunk leans with bringing opposite hand to opposite leg 1x10 bliat, and step ups onto blue balance disc 1x10 bilat. Pt. tolerated treatment well and reported doing core exercises help her feel better. Pt. exhibited decreased tolerance to step ups onto blue disc secondary to fatigue and pain in her left hip. Pt. reports pain 7/10 in her hip after treatment. Pt. was provided with an ice pack after treatment via request. Continue per POC. Try step up exercise with blue foam pad at next session to see if pt. has better tolerance with that. Add more core stabilization exercise. ) Physical Therapy Problem List: Detail (1. LE muscle weakness 2. Gait impairments 3. Lack of home exercise plan 4. Unequal weight bearing of LE) Physical Therapy Goals: 1. Pt. will be independent with, verbalize, and demonstrate understanding of home exercise plan provided by PT. 2. Pt. will improve hip musculature strength to help improve gait mechanics while displaying minimal antalgic gattern and decreased hip ADD/IR with ambulation. 3. Pt. will exhibit equal weight bearing of lower extremities while standing. 4. Pt. will report decreased apprehension to weight bear on her L LE with standing and ambulation. Prognosis: Good Physical Therapy Plan: Pt. will be seen 1-2x a day, Tuesday-Tuesday for LE strengthening exercises, gait training, emphasis on proper gait pattern.
[2017-03-16 11:50] LABS: INR 1.98; PROTHROMBIN TIME (PATIENT) 21.5 SECONDS (9.5-12.1)
[2017-03-16] MEDS: HEPARIN SODIUM FLUSH 100 UNITS/ML SYR 5ML IVP SCH (15:47)
[2017-03-16] MEDS: DAPTOMYCIN 500 MG/VIAL IV SCH (15:47)
[2017-03-16] MEDS: 0.9 % SODIUM CHLORIDE 10ML SYR IVP SCH (15:47)
[2017-03-16] MEDS: WARFARIN 1 MG TABLET PO SCH (17:28)
[2017-03-16] MEDS: WARFARIN 5 MG TAB PO SCH (17:29)
[2017-03-16] MEDS: ROPINIROLE HCL 1 MG TABLET PO SCH (21:43)
[2017-03-16] MEDS: HYDROCODONE/APAP 10/325 TABLET PO PRN (21:44)
[2017-03-17] MEDS: LEVOTHYROXINE SODIUM 150 MCG TABLET PO SCH (06:15)
[2017-03-17] MEDS: FUROSEMIDE 20 MG TABLET PO SCH ×2 (09:52→15:34)
[2017-03-17] MEDS: CYCLOBENZAPRINE 10MG TABLET PO SCH ×3 (09:52→21:50)
[2017-03-17] MEDS: GABAPENTIN 300 MG CAPSULE PO SCH ×3 (09:53→21:50)
[2017-03-17] MEDS: CLONAZEPAM 1MG TABLET PO SCH ×2 (09:54→21:50)
[2017-03-17] MEDS: POTASSIUM CHLORIDE 20 MEQ TABLET PO SCH ×2 (09:59→21:50)
[2017-03-17] MEDS: METHADONE HCL 5 MG TABLET PO SCH (10:00)
[2017-03-17] MEDS: PAROXETINE HCL 10 MG TABLET PO SCH (10:03)
[2017-03-17] MEDS: NICOTINE 21 MG/24 HOUR PATCH TD SCH (10:04)
--- NOTE | 2017-03-17 14:52 | Physical Therapy Tx Note ---
Physical Therapy Tx Note - Treatment Note Tolerated: Good Total Time Spent With Patient: 50 Physical Therapy Tx Note: Detail (Patient was in exiting bathroom upon INFORMATION TECHNOLOGY PROGRAM MANAGER arrival. Patient states no complaints of pain in hip currently. Patient ambulated 10 feet with four wheeled walker SBA x1. Patient donned socks independently. Patient transferred sit to and from stand independently. Patient ambulated 343 feet with four wheeled walker SBA x1. Patient performed Nustep L2 x10 minutes. Patient transferred sit to and from stand independently. Patient ambulated 25 feet with four wheeled walker SBA x1. Patient performed the following exercises at railing: marching x64 feet with cane, walking backwards x64 feet, sidestepping x32 feet each, sidestepping with squat x32 feet each, standing heel raises x20, standing toe raises x20, standing hip flexion x10, standing hip abduction x10, standing hip extension x10 , and standing hamstring curls x10. Patient ambulated 324 feet with four wheeled walker SBA x1. Patient tolerated treatment well. Patient reports left hip sore after treatment. Patient required seated rest break with standing exercises due to fatigue. Patient was left standing in room with call light within reach.) Physical Therapy Problem List: Detail (1. LE muscle weakness 2. Gait impairments 3. Lack of home exercise plan 4. Unequal weight bearing of LE) Physical Therapy Goals: 1. Pt. will be independent with, verbalize, and demonstrate understanding of home exercise plan provided by PT. 2. Pt. will improve hip musculature strength to help improve gait mechanics while displaying minimal antalgic gattern and decreased hip ADD/IR with ambulation. 3. Pt. will exhibit equal weight bearing of lower extremities while standing. 4. Pt. will report decreased apprehension to weight bear on her L LE with standing and ambulation. Prognosis: Good Physical Therapy Plan: Pt. will be seen 1-2x a day, Tuesday-Tuesday for LE strengthening exercises, gait training, emphasis on proper gait pattern.
[2017-03-17] MEDS: 0.9 % SODIUM CHLORIDE 10ML SYR IVP SCH (15:34)
[2017-03-17] MEDS: HEPARIN SODIUM FLUSH 100 UNITS/ML SYR 5ML IVP SCH (15:35)
[2017-03-17] MEDS: DAPTOMYCIN 500 MG/VIAL IV SCH (15:35)
[2017-03-17] MEDS: HYDROCODONE/APAP 10/325 TABLET PO PRN (18:37)
[2017-03-17] MEDS: WARFARIN 1 MG TABLET PO SCH (18:37)
[2017-03-17] MEDS: WARFARIN 5 MG TAB PO SCH (18:37)
[2017-03-17] MEDS: ROPINIROLE HCL 1 MG TABLET PO SCH (21:50)
[2017-03-18] MEDS: LEVOTHYROXINE SODIUM 150 MCG TABLET PO SCH (06:10)
--- NOTE | 2017-03-18 10:18 | Physician Progress Note ---
Subjective - Date Date of Progress Note: 03/18/17 - Admitting Diagnosis Diagnosis: Cellulitis of right proximal, lateral thigh with unerlying seroma and drain placement following hip replacement - Subjective Events since last encounter: No significant changes since initial evaluation. The patient has is attempting and is encouraged to taper her dose of [place]. She has already decreased to [place] 1 tab Q8H PRN and says that she is tolerating. She has no new complaints at this time. Nursing Care Plan Problem List Activity Intolerance (Swing Bed) Start: 03/10/17 18: 09 Freq: Status: Active Protocol: Created 03/10/17 18:09 [facility] (Rec: 03/10/17 18:09 [facility] [id number]) Knowledge Deficit (Swing Bed) Start: 03/10/17 18: 09 Freq: Status: Active Protocol: Created 03/10/17 18:09 [facility] (Rec: 03/10/17 18:09 [facility] [id number]) Pain (Swing Bed) Start: 03/10/17 18: 09 Freq: Status: Active Protocol: Created 03/10/17 18:09 [facility] (Rec: 03/10/17 18:09 [facility] [id number]) Subjective: AO x 3 w/o complaint. She says that her drainage from the wound has increased but she has no pain or discomfort from the area. General - Cognitive Patterns Speech: Normal Thought Process: Intact Thought Content: Normal - Communication Select best description of speech pattern: Clear Speech Ability to express ideas and wants: Understood Understanding verbal content: Understands - Mood and Behavior Patterns Appearance: Well Groomed Mood: Normal Attitude: Cooperative Motor Activity: Calm Affect: Appropriate Hallucinations: Denies - Physical Functioning Activity Level: Up as tolerated Turning: Self ad kaila ROM Ability: Moves all extremities Assistive Devices: 4 Wheel Walker Ambulation Ability: Independent Bed Mobility: Independent Transfer Ability: Independent Bathing Ability: Independent Personal Hygiene: Independent Dressing Ability: Independent Eating (Feeding) Ability: Independent Toileting Ability: Independent Administer Own Medication: Needs Assist - Continence Bowel Pattern: Normal for Patient Bladder Pattern: Normal Meds/Allergies - Allergies Allergies Allergy/AdvReac Type Severity Reaction Status Date / Time buprenorphine AdvReac PT UNSURE Verified 03/10/17 15:50 OF REACTION naltrexone AdvReac PT UNSURE Verified 03/10/17 15:50 OF REACTION - Active Medications Current Medications Hydrocodone Bitart/Acetaminophen ([place] 7.5mg/325mg) 1 each PO Q8H PRN PRN Reason: Pain - General Hydrocodone Bitart/Acetaminophen ([place] 7.5mg/325mg) 2 each PO Q8H PRN PRN Reason: Pain - General Clonazepam (Klonopin) 1 mg PO BID [facility] Last Admin: 03/17/17 21:50 Dose: 1 mg Cyclobenzaprine HCl (Flexeril) 10 mg PO TID [facility] Last Admin: 03/17/17 21:50 Dose: 10 mg Daptomycin (Cubicin) 600 mg IV 1500 [facility] Last Admin: 03/17/17 15:35 Dose: 600 mg Furosemide (Lasix) 20 mg PO BIDDIUR [facility] Last Admin: 03/17/17 15:34 Dose: 20 mg Gabapentin (Neurontin) 300 mg PO TID [facility] Last Admin: 03/17/17 21:50 Dose: 300 mg Heparin Sodium (Porcine) () 500 unit IVP 1530 [facility] Last Admin: 03/17/17 15:35 Dose: 500 unit Levothyroxine Sodium (Synthroid) 150 mcg PO DAILYTHY [facility] Last Admin: 03/18/17 06:10 Dose: 150 mcg Methadone HCl (Dolophine) 35 mg PO DAILY [facility] Last Admin: 03/17/17 10:00 Dose: 35 mg Nicotine (Nicotine 21mg) 1 patch TD DAILY [facility] Last Admin: 03/17/17 10:04 Dose: 1 patch Paroxetine HCl (Paxil) 40 mg PO DAILY [facility] Last Admin: 03/17/17 10:03 Dose: 40 mg Potassium Chloride (Klor-Con) 40 meq PO BID [facility] Last Admin: 03/17/17 21:50 Dose: 40 meq Ropinirole HCl (Requip) 4 mg PO QHS [facility] Last Admin: 03/17/17 21:50 Dose: 4 mg Sodium Chloride () 10 ml IVP 1500 [facility] Last Admin: 03/17/17 15:34 Dose: 10 ml Warfarin Sodium (Coumadin) 10 mg PO 1800 [facility] Last Admin: 03/17/17 18:37 Dose: 10 mg Warfarin Sodium (Coumadin) 3 mg PO 1800 [facility] Last Admin: 03/17/17 18:37 Dose: 3 mg Objective - Vital Signs Vital Signs: Vital Signs - Last 24 Hrs Temp Pulse Resp BP Pulse Ox 03/18/17 07:57 98.1 F 86 16 122/92 94 L 03/17/17 20:00 97.8 F 74 18 124/56 96 - General General Appearance: Alert, Oriented x3, Cooperative, No acute distress - Head Head exam: Normal inspection - Eye Eye exam: Normal appearance, PERRL Pupils: Normal accommodation - ENT ENT exam: Normal exam, Mucous membranes moist, Normal external ear exam, Normal orophraynx, TM's normal bilaterally Ear exam: Normal external inspection. negative: External canal tenderness Nasal Exam: Normal inspection. negative: Discharge, Sinus tenderness Mouth exam: Normal external inspection, Tongue normal - Respiratory Respiratory exam: Normal lung sounds bilaterally. negative: Respiratory distress - Cardiovascular Cardiovascular Exam: Regular rate, Normal rhythm, Normal heart sounds Peripheral Pulses: 2+: Radial (R), Radial (L) - GI/Abdominal GI/Abdominal exam: Soft, Normal bowel sounds. negative: Tenderness - Rectal Rectal exam: Deferred - exam: Deferred - Extremities Extremities exam: Other (right hip edematous, clean dressing with drain to suction, improving erythema ) - Neurological Neurological exam: Alert, CN II-XII intact, Normal gait (ambulates with a walker ), Oriented X3, Reflexes normal - Psychiatric Psychiatric exam: Normal affect, Normal mood - Skin Skin exam: Erythema (RLE ) Discharge Potential - Discharge Needs Community Services Used Prior to Admission: Home Health Nurse Patient Discharge Plan Description: Return Home Community Services Needed at Discharge: Occupational Therapy, Physical Therapy Discharge Needs Comment: Either home health or outpatient infusion, doesn't care , just whichever is cheaper Plan - Swing Bed Certification Initial Certification Due: 03/10/17 14 Day Re-Cert Due: 03/24/17 44 Day Re-Cert Due: 04/23/17 74 Day Re-Cert Due: 05/23/17 - Detailed Diagnosis and Plan (1) Seroma, infected, postoperative Plan: - s/p insertion of drain w/ suction on 02/22. Recent admission to [facility] and started on broad-spectrum abx. - cultures grew MRSA on admission. Changed to Cubicin, currently on day #12 via right UE PICC line - Pt to follow up with ID (Dr. Varghese) 03/21 and IR for drain/wound check next week. Increased discharge from wound. Dressing clean. Change Q48H rather than QD. - daily PT/OT for conditioning, ambulates independently. Current Visit: Yes Status: Acute Base Code: [id number] - (2) MRSA (methicillin resistant staph aureus) culture positive Plan: - report of MRSA as per Chris BCX : gram positive cocci in clusters. ID: MRSA - currently on Cubicin QD x 8 weeks. RUE PICC line. To culture as per ID recs. - contact precautions ordered 03/11/17 17:07 Current Visit: Yes Status: Acute Base Code: Z22.322 - CARRIER OR SUSPECTED CARRIER OF METHICILLIN RESIS STAPH (3) Fibromyalgia Plan: - continue Gabapentin 300mg TID Current Visit: Yes Status: Acute Base Code: M79.7 - FIBROMYALGIA (4) Depression with anxiety Plan: - currently stable on Fluoxetine 40mg and Klonipin 1mg BID Current Visit: Yes Status: Acute Base Code: F41.8 - OTHER SPECIFIED ANXIETY DISORDERS (5) History of bilateral total hip arthroplasty Plan: - hx of bilateral total athroplasty with multiple revisions. - on [place] 10/325mg 1 tabs Q8H, Cyclobenzaprine 10mg TID, - ambulates well with walker, PT/OT to follow for daily evaluation. Current Visit: Yes Status: Acute Base Code: Z96.643 - PRESENCE OF ARTIFICIAL HIP JOINT, BILATERAL (6) Hypothyroid Plan: - will continue dosing of Levothyroxine at 150mcg QD Current Visit: Yes Status: Acute Base Code: E03.9 - HYPOTHYROIDISM, UNSPECIFIED (7) History of heroin abuse Plan: - D/C heroine 5 years ago. - on Methadone 35mg QAM Current Visit: Yes Status: Acute Base Code: Z87.898 - PERSONAL HISTORY OF OTHER SPECIFIED CONDITIONS (8) History of DVT (deep vein thrombosis) Plan: - on Warfarin 13mg QD, pharmacy to dose - INR to be followed Current Visit: Yes Status: Acute Base Code: Z86.718 - PERSONAL HISTORY OF OTHER VENOUS THROMBOSIS AND EMBOLISM (9) Obesity, morbid, BMI 50 or higher Current Visit: Yes Status: Acute Base Code: E66.01 - MORBID (SEVERE) OBESITY DUE TO EXCESS CALORIES (10) Inpatient admission status Plan: Patient has chronic seroma of the right hip s/p drain insertion which requires extended IV antibiotic treatment. Current Visit: Yes Status: Acute Base Code: [id number] - (11) Code status needs review Plan: Will discuss with patient. Current Visit: Yes Status: Acute Base Code: [id number] - - Disposition Patient is improving with increased drainage from seroma. Pt to f/u wit ID/IR this week.
[2017-03-18] MEDS: GABAPENTIN 300 MG CAPSULE PO SCH ×3 (12:23→21:31)
[2017-03-18] MEDS: FUROSEMIDE 20 MG TABLET PO SCH ×2 (12:23→15:32)
[2017-03-18] MEDS: POTASSIUM CHLORIDE 20 MEQ TABLET PO SCH ×2 (12:23→21:31)
[2017-03-18] MEDS: PAROXETINE HCL 10 MG TABLET PO SCH (12:23)
[2017-03-18] MEDS: CYCLOBENZAPRINE 10MG TABLET PO SCH ×3 (12:23→21:31)
[2017-03-18] MEDS: METHADONE HCL 5 MG TABLET PO SCH (12:24)
[2017-03-18] MEDS: HYDROCODONE/APAP 7.5/325MG TABLET PO PRN (12:24)
[2017-03-18] MEDS: CLONAZEPAM 1MG TABLET PO SCH ×2 (12:24→21:31)
[2017-03-18] MEDS: NICOTINE 21 MG/24 HOUR PATCH TD SCH (12:27)
--- NOTE | 2017-03-18 13:09 | Physical Therapy Tx Note ---
Physical Therapy Tx Note - Treatment Note Physical Therapy Tx Note: Detail (The patient was not seen today secondary to patient went to an appointment.) Physical Therapy Problem List: Detail (1. LE muscle weakness 2. Gait impairments 3. Lack of home exercise plan 4. Unequal weight bearing of LE) Physical Therapy Goals: 1. Pt. will be independent with, verbalize, and demonstrate understanding of home exercise plan provided by PT. 2. Pt. will improve hip musculature strength to help improve gait mechanics while displaying minimal antalgic gattern and decreased hip ADD/IR with ambulation. 3. Pt. will exhibit equal weight bearing of lower extremities while standing. 4. Pt. will report decreased apprehension to weight bear on her L LE with standing and ambulation. Physical Therapy Plan: Pt. will be seen 1-2x a day, Tuesday-Tuesday for LE strengthening exercises, gait training, emphasis on proper gait pattern.
[2017-03-18] MEDS: 0.9 % SODIUM CHLORIDE 10ML SYR IVP SCH (15:31)
[2017-03-18] MEDS: DAPTOMYCIN 500 MG/VIAL IV SCH (15:31)
[2017-03-18] MEDS: HEPARIN SODIUM FLUSH 100 UNITS/ML SYR 5ML IVP SCH (15:31)
[2017-03-18] MEDS: WARFARIN 1 MG TABLET PO SCH (18:11)
[2017-03-18] MEDS: WARFARIN 5 MG TAB PO SCH (18:13)
[2017-03-18] MEDS: ROPINIROLE HCL 1 MG TABLET PO SCH (21:31)
[2017-03-19] MEDS: LEVOTHYROXINE SODIUM 150 MCG TABLET PO SCH (06:11)
[2017-03-19] MEDS: HYDROCODONE/APAP 7.5/325MG TABLET PO PRN ×2 (10:59→21:11)
[2017-03-19] MEDS: METHADONE HCL 5 MG TABLET PO SCH (11:01)
[2017-03-19] MEDS: CLONAZEPAM 1MG TABLET PO SCH ×2 (11:02→21:11)
[2017-03-19] MEDS: POTASSIUM CHLORIDE 20 MEQ TABLET PO SCH ×2 (11:03→21:10)
[2017-03-19] MEDS: GABAPENTIN 300 MG CAPSULE PO SCH ×3 (11:04→21:11)
[2017-03-19] MEDS: CYCLOBENZAPRINE 10MG TABLET PO SCH ×3 (11:04→21:11)
[2017-03-19] MEDS: FUROSEMIDE 20 MG TABLET PO SCH ×2 (11:04→16:27)
[2017-03-19] MEDS: NICOTINE 21 MG/24 HOUR PATCH TD SCH (11:05)
[2017-03-19] MEDS: PAROXETINE HCL 10 MG TABLET PO SCH (11:05)
[2017-03-19] MEDS: HEPARIN SODIUM FLUSH 100 UNITS/ML SYR 5ML IVP SCH ×2 (11:57→16:26)
[2017-03-19] MEDS: 0.9 % SODIUM CHLORIDE 10ML SYR IVP SCH ×2 (11:57→16:26)
[2017-03-19 12:33] LABS: INR 1.97; PROTHROMBIN TIME (PATIENT) 21.4 SECONDS (9.5-12.1)
[2017-03-19] MEDS: DAPTOMYCIN 500 MG/VIAL IV SCH (16:26)
[2017-03-19] MEDS: WARFARIN 1 MG TABLET PO SCH (17:11)
[2017-03-19] MEDS: WARFARIN 5 MG TAB PO SCH (17:11)
[2017-03-19] MEDS: ROPINIROLE HCL 1 MG TABLET PO SCH (21:11)
[2017-03-20] MEDS: LEVOTHYROXINE SODIUM 150 MCG TABLET PO SCH (06:15)
[2017-03-20 06:49] LABS: BASO % 0.9 % (0-6); EOS % 3.3 % (0-6); GRAN % 39.9 % (47-80); HEMATOCRIT 41.5 % (35.0-47.0); HEMOGLOBIN 13.6 gm/dl (11.6-16.0); LYMPH % 44.8 % (16-45); MEAN CELL VOLUME 88.3 fl (81-97); MEAN CORPUSCULAR HEMOGLOBIN 28.9 pg (27-33); MEAN CORPUSCULAR HGB CONC 32.8 g/dl (32-36); MEAN PLATELET VOLUME 9.9 fl (7.4-10.4); MONO % 11.1 % (0-9); PLATELET COUNT 351 K/uL (130-400); RED CELL DISTRIBUTION WIDTH 14.1 % (11.5-14.5); WHITE BLOOD COUNT W/O DIFF 4.6 K/uL (4.2-12.2)
[2017-03-20 06:58] LABS: INR 2.19; PROTHROMBIN TIME (PATIENT) 23.8 SECONDS (9.5-12.1)
[2017-03-20 07:04] LABS: BLOOD UREA NITROGEN 12 mg/dL (6-20); CREATININE 0.6 mg/dL (0.5-0.9); EST GLOMERULAR FILTRATION RATE > 60 mL/min; GLUCOSE,RANDOM 92 mg/dL (74-109)
[2017-03-20] MEDS: POTASSIUM CHLORIDE 20 MEQ TABLET PO SCH ×2 (10:21→22:02)
[2017-03-20] MEDS: GABAPENTIN 300 MG CAPSULE PO SCH ×3 (10:21→22:01)
[2017-03-20] MEDS: FUROSEMIDE 20 MG TABLET PO SCH ×2 (10:21→16:07)
[2017-03-20] MEDS: PAROXETINE HCL 10 MG TABLET PO SCH (10:21)
[2017-03-20] MEDS: CYCLOBENZAPRINE 10MG TABLET PO SCH ×3 (10:22→22:01)
[2017-03-20] MEDS: METHADONE HCL 5 MG TABLET PO SCH (10:22)
[2017-03-20] MEDS: NICOTINE 21 MG/24 HOUR PATCH TD SCH (10:25)
[2017-03-20] MEDS: CLONAZEPAM 1MG TABLET PO SCH ×2 (13:11→22:01)
[2017-03-20] MEDS: DAPTOMYCIN 500 MG/VIAL IV SCH (16:08)
[2017-03-20] MEDS: 0.9 % SODIUM CHLORIDE 10ML SYR IVP SCH (16:53)
[2017-03-20] MEDS: HEPARIN SODIUM FLUSH 100 UNITS/ML SYR 5ML IVP SCH (16:53)
[2017-03-20] MEDS: WARFARIN 1 MG TABLET PO SCH (18:13)
[2017-03-20] MEDS: WARFARIN 5 MG TAB PO SCH (18:13)
[2017-03-20] MEDS: ROPINIROLE HCL 1 MG TABLET PO SCH (22:01)
[2017-03-20] MEDS: HYDROCODONE/APAP 7.5/325MG TABLET PO PRN (22:02)
[2017-03-21] MEDS: LEVOTHYROXINE SODIUM 150 MCG TABLET PO SCH (06:19)
[2017-03-21] MEDS: FUROSEMIDE 20 MG TABLET PO SCH ×2 (09:52→17:09)
[2017-03-21] MEDS: METHADONE HCL 5 MG TABLET PO SCH (09:52)
[2017-03-21] MEDS: PAROXETINE HCL 10 MG TABLET PO SCH (09:53)
[2017-03-21] MEDS: GABAPENTIN 300 MG CAPSULE PO SCH ×3 (09:54→21:40)
[2017-03-21] MEDS: CYCLOBENZAPRINE 10MG TABLET PO SCH ×3 (09:54→21:40)
[2017-03-21] MEDS: POTASSIUM CHLORIDE 20 MEQ TABLET PO SCH ×2 (09:54→21:39)
[2017-03-21] MEDS: NICOTINE 21 MG/24 HOUR PATCH TD SCH ×2 (09:54→18:02)
[2017-03-21] MEDS: DOCUSATE SODIUM 100 MG CAPSULE PO SCH ×2 (09:54→21:40)
[2017-03-21] MEDS: CLONAZEPAM 1MG TABLET PO SCH ×2 (09:54→21:39)
--- NOTE | 2017-03-21 11:46 | Physical Therapy Tx Note ---
Physical Therapy Tx Note - Treatment Note Physical Therapy Tx Note: Detail (Pt. reports the pain in her L hip today is 3-4 /10 and that when at this level she doesn't need to use pain meds. Pt. completed 10 mins on the Nustep on Level 3, and walked on the treadmill for 0.1 miles at 1mph. Pt, completed ther ex of supine alternating leg to arm taps with core isometric hold x10 each side, SLR with core isometric hold x10 on each side , glute bridge x10, glute bridge with adductor ball squeeze x10, side step with mini squat at bar, 32 ft to the right and 32 ft to the left, and calf raise to heel rise on foam pad x10 each direction. Instructed patient on use of quad cane and pt. ambulated approximately 64 ft. with the quad cane in her right hand and her left hand holding onto the bar as needed. PT had the pt. stand on two weight scales to show pt. her current weight distribution through both legs and instructed her on the importance of equal weight bearing with ambulation to progress from using the four-wheeled walker to a quad or SPC. Pt. displayed 180 lbs. on her R LE and 100lbs. on her L LE. Pt. tolerated treatment well and stated she can feel her muscles around her hip working for the first time. Pt. reports her pain 6/10 after completion of ther ex, but most of her pain was a result of muscle soreness from exercise. Pt. was unable to complete the SLR with her L LE and so the exercise was modified to shorten the lever arm by having the pt. bend her knee to complete the exercise. Continue per POC.) Physical Therapy Problem List: Detail (1. LE muscle weakness 2. Gait impairments 3. Lack of home exercise plan 4. Unequal weight bearing of LE) Physical Therapy Goals: 1. Pt. will be independent with, verbalize, and demonstrate understanding of home exercise plan provided by PT. 2. Pt. will improve hip musculature strength to help improve gait mechanics while displaying minimal antalgic gattern and decreased hip ADD/IR with ambulation. 3. Pt. will exhibit equal weight bearing of lower extremities while standing. 4. Pt. will report decreased apprehension to weight bear on her L LE with standing and ambulation. Physical Therapy Plan: Pt. will be seen 1-2x a day, Tuesday-Tuesday for LE strengthening exercises, gait training, emphasis on proper gait pattern.
[2017-03-21] MEDS ORDERED: NYSTATIN 15 GM TUBE TOP PRN (14:15)
[2017-03-21] MEDS: HEPARIN SODIUM FLUSH 100 UNITS/ML SYR 5ML IVP SCH (17:07)
[2017-03-21] MEDS: DAPTOMYCIN 500 MG/VIAL IV SCH (17:07)
[2017-03-21] MEDS: HYDROCODONE/APAP 7.5/325MG TABLET PO PRN (17:08)
[2017-03-21] MEDS: 0.9 % SODIUM CHLORIDE 10ML SYR IVP SCH (17:08)
[2017-03-21] MEDS: WARFARIN 5 MG TAB PO SCH (18:00)
[2017-03-21] MEDS: WARFARIN 1 MG TABLET PO SCH (18:00)
[2017-03-21] MEDS: NICOTINE14 MG/24 HOUR PATCH TD SCH (18:04)
--- NOTE | 2017-03-21 18:32 | Occupational Therapy Tx Note ---
Occupational Therapy Tx Note - Treatment Note Occupational Therapy Treatment Note: Detail (Pt. was out of the building for an appt. during scheduled OT session time and pt. had not returned by the end of therapist's work schedule. Pt. reported to PT that she had some questions for OT. Plan to see pt. on Tue. to address questions, then d/c.) Occupational Therapy Problem List: Detail (LUE weakness (shd and head chopper strength)) Occupational Therapy Goals: 1) Pt. will be independent in performing BUE HEP to increase strength. 2) Pt. will demo. understanding of CTS dx and potential adaptive strategies to reduce dropping items. Occupational Therapy Plan: Pt will be seen 1-2 sessions M-F during rehab business hours during her swing bed stay.
[2017-03-21] MEDS: ROPINIROLE HCL 1 MG TABLET PO SCH (21:39)
[2017-03-22] MEDS: LEVOTHYROXINE SODIUM 150 MCG TABLET PO SCH (06:24)
[2017-03-22] MEDS ORDERED: NICOTINE14 MG/24 HOUR PATCH TD SCH (10:00)
[2017-03-22] MEDS: METHADONE HCL 5 MG TABLET PO SCH (10:39)
[2017-03-22] MEDS: PAROXETINE HCL 10 MG TABLET PO SCH (10:40)
[2017-03-22] MEDS: GABAPENTIN 300 MG CAPSULE PO SCH ×3 (10:40→22:18)
[2017-03-22] MEDS: POTASSIUM CHLORIDE 20 MEQ TABLET PO SCH ×2 (10:40→22:18)
[2017-03-22] MEDS: DOCUSATE SODIUM 100 MG CAPSULE PO SCH ×2 (10:40→22:18)
[2017-03-22] MEDS: CYCLOBENZAPRINE 10MG TABLET PO SCH ×3 (10:41→22:18)
[2017-03-22] MEDS: FUROSEMIDE 20 MG TABLET PO SCH ×2 (10:41→17:33)
[2017-03-22] MEDS: CLONAZEPAM 1MG TABLET PO SCH ×2 (10:41→22:18)
[2017-03-22 11:04] LABS: INR 2.18; PROTHROMBIN TIME (PATIENT) 23.7 SECONDS (9.5-12.1)
[2017-03-22] MEDS: NICOTINE14 MG/24 HOUR PATCH TD SCH (12:21)
[2017-03-22] MEDS: HYDROCODONE/APAP 7.5/325MG TABLET PO PRN ×2 (14:25→22:24)
[2017-03-22] MEDS: HEPARIN SODIUM FLUSH 100 UNITS/ML SYR 5ML IVP SCH ×2 (14:26→16:19)
[2017-03-22] MEDS: 0.9 % SODIUM CHLORIDE 10ML SYR IVP SCH (14:26)
[2017-03-22] MEDS: DAPTOMYCIN 500 MG/VIAL IV SCH (14:26)
[2017-03-22] MEDS: WARFARIN 1 MG TABLET PO SCH (17:31)
[2017-03-22] MEDS: WARFARIN 5 MG TAB PO SCH (17:34)
[2017-03-22] MEDS: ROPINIROLE HCL 1 MG TABLET PO SCH (22:18)
[2017-03-23] MEDS: LEVOTHYROXINE SODIUM 150 MCG TABLET PO SCH (06:22)
[2017-03-23] MEDS: METHADONE HCL 5 MG TABLET PO SCH (09:42)
[2017-03-23] MEDS: GABAPENTIN 300 MG CAPSULE PO SCH ×3 (09:43→21:11)
[2017-03-23] MEDS: FUROSEMIDE 20 MG TABLET PO SCH ×2 (09:43→15:01)
[2017-03-23] MEDS: DOCUSATE SODIUM 100 MG CAPSULE PO SCH ×2 (09:43→21:11)
[2017-03-23] MEDS: POTASSIUM CHLORIDE 20 MEQ TABLET PO SCH ×2 (09:43→21:11)
[2017-03-23] MEDS: CLONAZEPAM 1MG TABLET PO SCH ×2 (09:43→21:11)
[2017-03-23] MEDS: PAROXETINE HCL 10 MG TABLET PO SCH (09:43)
[2017-03-23] MEDS: CYCLOBENZAPRINE 10MG TABLET PO SCH ×3 (09:43→21:11)
[2017-03-23] MEDS: NICOTINE14 MG/24 HOUR PATCH TD SCH (09:44)
--- NOTE | 2017-03-23 11:40 | Rehab Discharge Summary ---
Patient Information - Patient Information Diagnosis: Cellulitis of R proximal, lateral thigh with underlying seroma Ordered Treatment: OT Evaluate and Treat History: Detail (Pt. reported hx of R hip replacement, L hip dislocation x2, L shd laproscopic sx x3, and dx of bilateral CTS in 2000.) Past Medical/Surgical Hx: PAST MEDICAL/SURGICAL HISTORY Past Surgical History tonsillectomy 1970 x1 left shoulder- "shaved the bone" laparscopic left shoulder torn ligaments repaired, then laparscopic surgery to remove apolinar Sep, 2012- Left hip replacement Dec, 2012- Right hip replacement Sep, 2016- left hip revision November,- left total hip replacement PMH - Respiratory Hx Respiratory Disorders Yes Hx Pulmonary Embolism Yes: 03/2016 Hx Sleep Apnea Yes Hx of CPAP No PMH - Cardiovascular Hx Cardiovascular Disorders Yes Hx Deep Vein Thrombosis Yes: multiple Hx Edema Yes Hx Palpitations Yes PMH - Neuro Hx Seizures No PMH - GI Hx Gastrointestinal Disorders Yes Hx Hepatitis/Jaundice Yes: hepatitis C PMH - Hx Genitourinary Disorders No PMH - Endocrine Hx Endocrine Disorders Yes Hx Thyroid Disease Yes PMH - Musculoskeletal Hx Musculoskeletal Disorders Yes Hx Arthritis Yes Hx Fibromyalgia Yes PMH - Psych Hx Psychiatric Problems Yes Hx Anxiety Yes Hx Depression Yes PMH - Hematology/Oncology Hx Bruising Yes: on coumadin Hx Clotting Problems Yes: protein C or protein S deficiency Hx Blood Transfusion Reaction No Premorbid Status: Detail (Pt. Ind. with all basic ADL's (bathing, dressing, meal prep, etc.). Pt. receives assistance from significant other with many IADL' s, including grocery shopping, laundry (d/t stairs), and heavy housework. Pt. reports she is able to use the kitchen, do dishes, and clean the bathroom independently. Pt. uses a 4WW for functional ambulation, except in the kitchen ( doesn't fit) where she uses the counter for support.) Social History: Detail (Pt. reports she lives in a single story apartment. Pt. does have to ascend 3 sets of 8 steps to get to her apartment building. There is a railing on both sides for each set of steps. Pt. lives with her significant other and states he is able to help as needed with tasks around the apartment. Pt. reports she has a raised toilet seat and a grab bar in her shower. Pt. denies the need of a shower chair and states she is able to remain standing while showering. Pt. reports she is able to perform most ADLs at home including dishes and cleaning of counters/bathroom and kitchen sinks. Pt. reports difficulty with any tasks that involves bending or squatting. Pt. is unable to vaccum , and not do her laundry because the laundry room is down stairs. Pt. reports no difficulty with ascending steps, but states it is difficult to descend steps. Pt. reports she ambulates with a front wheeled walker at all times. Pt. tried ambulating with a single point cane, but reports she felt unstable and was not comfortable using it. Pt. reports she is apprehensive to weight bear on L LE secondary to pain. Pt. also states she feels as if it is natural to weight bear more on her R side compared to the L. Pt. reports pain in her L hip at a 6/10 right now and doesn't report any discomfort in her right hip.) Precautions: [place], Fall - Time With Patient Total Time Spent With Patient (Min): 5 ((no charge)) Therapy Assessment - Therapy Assessment Detail (Pt. demo. knowledge of BUE exercises, referring to HEP h/o prn. When I spoke to pt, she stated PT answered exercise Q's during their therapy session. All OT goals met. Recommend d/c from OT services at this time.) Problem List - Problem List Physical Therapy Problem List: Detail (1. LE muscle weakness 2. Gait impairments 3. Lack of home exercise plan 4. Unequal weight bearing of LE) Occupational Therapy Problem List: Detail (LUE weakness (shd and illustrator set strength)) Goals - Goals Physical Therapy Goals: 1. Pt. will be independent with, verbalize, and demonstrate understanding of home exercise plan provided by PT. 2. Pt. will improve hip musculature strength to help improve gait mechanics while displaying minimal antalgic gattern and decreased hip ADD/IR with ambulation. 3. Pt. will exhibit equal weight bearing of lower extremities while standing. 4. Pt. will report decreased apprehension to weight bear on her L LE with standing and ambulation. Occupational Therapy Goals: 1) Pt. will be independent in performing BUE HEP to increase strength. (met). 2) Pt. will demo. understanding of CTS dx and potential adaptive strategies to reduce dropping items. (met) Prognosis - Prognosis Good Plan - Plan Physical Therapy Plan: Pt. will be seen 1-2x a day, Tuesday-Tuesday for LE strengthening exercises, gait training, emphasis on proper gait pattern. Occupational Therapy Plan: D/c pt. from OT services d/t goals met/completion of program. Pt. educ. to call rehab dept. if questions/concerns.
--- NOTE | 2017-03-23 14:15 | Physical Therapy Tx Note ---
Physical Therapy Tx Note - Treatment Note Tolerated: Good Total Time Spent With Patient: 60 Physical Therapy Tx Note: Detail (Patient states left hip sore today. Patient transferred sit to and from stand independently. Patient ambulated 333 feet with four wheeled walker SBA x1. Patient performed the Nustep L3 x10 minutes. Patient transferred sit to and from stand independently. Patient ambulated 50 feet with four wheeled walker SBA x1. Patient ambulated on treadmill 1.2 MPH x10 minutes. Patient ambulated 100 feet with four wheeled walker SBA x1. Patient performed the following exercises: walking backwards x64 feet with railing, sidestepping x32 feet each with railing, ambulating with single point cane x64 feet, standing heel raises x20, standing toe raises x20, standing hip abduction x10 bilateral, and squats x20. Patient ambulated 200 feet with four wheeled walker SBA x1. Patient tolerated treatment well. Patient displays decreased strength and endurance with sidestepping, walking backwards, and standing hip abduction. Patient was left standing in room with call light within reach.) Physical Therapy Problem List: Detail (1. LE muscle weakness 2. Gait impairments 3. Lack of home exercise plan 4. Unequal weight bearing of LE) Physical Therapy Goals: 1. Pt. will be independent with, verbalize, and demonstrate understanding of home exercise plan provided by PT. 2. Pt. will improve hip musculature strength to help improve gait mechanics while displaying minimal antalgic gattern and decreased hip ADD/IR with ambulation. 3. Pt. will exhibit equal weight bearing of lower extremities while standing. 4. Pt. will report decreased apprehension to weight bear on her L LE with standing and ambulation. Prognosis: Good Physical Therapy Plan: Pt. will be seen 1-2x a day, Tuesday-Tuesday for LE strengthening exercises, gait training, emphasis on proper gait pattern.
[2017-03-23] MEDS: 0.9 % SODIUM CHLORIDE 10ML SYR IVP SCH (15:01)
[2017-03-23] MEDS: DAPTOMYCIN 500 MG/VIAL IV SCH (15:01)
[2017-03-23] MEDS: HEPARIN SODIUM FLUSH 100 UNITS/ML SYR 5ML IVP SCH (15:01)
[2017-03-23] MEDS: WARFARIN 5 MG TAB PO SCH (17:09)
[2017-03-23] MEDS: WARFARIN 1 MG TABLET PO SCH (17:09)
[2017-03-23] MEDS: HYDROCODONE/APAP 7.5/325MG TABLET PO PRN (17:09)
[2017-03-23] MEDS: NYSTATIN 15 GM POWDER TP PRN (17:13)
[2017-03-23] MEDS: ROPINIROLE HCL 1 MG TABLET PO SCH (21:11)
[2017-03-24] MEDS: LEVOTHYROXINE SODIUM 150 MCG TABLET PO SCH (06:09)
[2017-03-24] MEDS: CYCLOBENZAPRINE 10MG TABLET PO SCH ×3 (09:19→21:58)
[2017-03-24] MEDS: METHADONE HCL 5 MG TABLET PO SCH (09:19)
[2017-03-24] MEDS: DOCUSATE SODIUM 100 MG CAPSULE PO SCH ×2 (09:19→21:59)
[2017-03-24] MEDS: CLONAZEPAM 1MG TABLET PO SCH ×2 (09:19→21:59)
[2017-03-24] MEDS: POTASSIUM CHLORIDE 20 MEQ TABLET PO SCH ×2 (09:20→21:59)
[2017-03-24] MEDS: GABAPENTIN 300 MG CAPSULE PO SCH ×3 (09:20→21:58)
[2017-03-24] MEDS: NICOTINE14 MG/24 HOUR PATCH TD SCH (09:20)
[2017-03-24] MEDS: FUROSEMIDE 20 MG TABLET PO SCH ×2 (09:20→16:09)
[2017-03-24] MEDS: PAROXETINE HCL 10 MG TABLET PO SCH (09:20)
[2017-03-24] MEDS: NYSTATIN 15 GM POWDER TP PRN (09:56)
[2017-03-24] MEDS: 0.9 % SODIUM CHLORIDE 10ML SYR IVP SCH (16:09)
[2017-03-24] MEDS: DAPTOMYCIN 500 MG/VIAL IV SCH (16:09)
[2017-03-24] MEDS: HEPARIN SODIUM FLUSH 100 UNITS/ML SYR 5ML IVP SCH (16:10)
[2017-03-24] MEDS: NYSTATIN 15 GM TUBE TOP PRN (17:06)
[2017-03-24] MEDS: ZINC OXIDE 28.35 GM TUBE TOP PRN (17:06)
[2017-03-24] MEDS: WARFARIN 5 MG TAB PO SCH (17:06)
[2017-03-24] MEDS: WARFARIN 1 MG TABLET PO SCH (17:06)
[2017-03-24] MEDS: HYDROCODONE/APAP 7.5/325MG TABLET PO PRN (19:59)
[2017-03-24] MEDS: ROPINIROLE HCL 1 MG TABLET PO SCH (21:59)
[2017-03-25] MEDS: LEVOTHYROXINE SODIUM 150 MCG TABLET PO SCH (06:06)
[2017-03-25] MEDS: NYSTATIN 15 GM POWDER TP PRN ×2 (06:44→14:17)
--- NOTE | 2017-03-25 07:37 | Physician Progress Note ---
Subjective - Date Date of Progress Note: 03/27/17 - Admitting Diagnosis Diagnosis: Cellulitis of right proximal, lateral thigh with unerlying seroma and drain placement following hip replacement - Subjective Nursing Care Plan Problem List Activity Intolerance (Swing Bed) Start: 03/10/17 18: 09 Freq: Status: Active Protocol: Created 03/10/17 18:09 [place] (Rec: 03/10/17 18:09 [place] [id number]) Knowledge Deficit (Swing Bed) Start: 03/10/17 18: 09 Freq: Status: Active Protocol: Created 03/10/17 18:09 [place] (Rec: 03/10/17 18:09 [place] [id number]) Pain (Swing Bed) Start: 03/10/17 18: 09 Freq: Status: Active Protocol: Created 03/10/17 18:09 [place] (Rec: 03/10/17 18:09 [place] [id number]) Subjective: 03/25/17- Patient states that her right leg seems to be doing well. she has been doing very well with PT/OT. she has noted redness and severe itching in the areas under her breasts and pannus fold. She says originally she was using nystatin powder, then someone suggested she try cream. The nystatin cream seemed to make this much worse and we actually tried an oral diflucan with no improvement. she is now having itching and redness of her abdomen General - Cognitive Patterns Speech: Normal Thought Process: Intact Thought Content: Normal - Communication Select best description of speech pattern: Clear Speech Ability to express ideas and wants: Understood Understanding verbal content: Understands - Mood and Behavior Patterns Appearance: Well Groomed Mood: Normal Attitude: Cooperative Motor Activity: Calm Affect: Appropriate Hallucinations: Denies - Physical Functioning Activity Level: Up as tolerated Turning: Self ad kaila ROM Ability: Moves all extremities Assistive Devices: 2 Wheel Walker Ambulation Ability: Independent Bed Mobility: Independent Transfer Ability: Independent Bathing Ability: Independent Personal Hygiene: Independent Dressing Ability: Independent Eating (Feeding) Ability: Independent Toileting Ability: Independent Administer Own Medication: Independent - Continence Bowel Pattern: Normal for Patient Bladder Pattern: Normal Meds/Allergies - Allergies Allergies Allergy/AdvReac Type Severity Reaction Status Date / Time buprenorphine AdvReac PT UNSURE Verified 03/10/17 15:50 OF REACTION naltrexone AdvReac PT UNSURE Verified 03/10/17 15:50 OF REACTION - Active Medications Current Medications Hydrocodone Bitart/Acetaminophen ([place] 7.5mg/325mg) 1 each PO Q8H PRN PRN Reason: Pain - General Last Admin: 03/23/17 17:09 Dose: 1 each Hydrocodone Bitart/Acetaminophen ([place] 7.5mg/325mg) 2 each PO Q8H PRN PRN Reason: Pain - General Last Admin: 03/24/17 19:59 Dose: 2 each Clonazepam (Klonopin) 1 mg PO BID [facility] Last Admin: 03/24/17 21:59 Dose: 1 mg Cyclobenzaprine HCl (Flexeril) 10 mg PO TID [facility] Last Admin: 03/24/17 21:58 Dose: 10 mg Daptomycin (Cubicin) 600 mg IV 1500 [facility] Last Admin: 03/24/17 16:09 Dose: 600 mg Docusate Sodium (Colace) 100 mg PO BID [facility] Last Admin: 03/24/17 21:59 Dose: 100 mg Furosemide (Lasix) 20 mg PO BIDDIUR [facility] Last Admin: 03/24/17 16:09 Dose: 20 mg Gabapentin (Neurontin) 300 mg PO TID [facility] Last Admin: 03/24/17 21:58 Dose: 300 mg Heparin Sodium (Porcine) () 500 unit IVP 1530 [facility] Last Admin: 03/24/17 16:10 Dose: 500 unit Levothyroxine Sodium (Synthroid) 150 mcg PO DAILYTHY [facility] Last Admin: 03/25/17 06:06 Dose: 150 mcg Methadone HCl (Dolophine) 35 mg PO DAILY [facility] Last Admin: 03/24/17 09:19 Dose: 35 mg Nicotine (Nicotine 14mg) 1 patch TD DAILY [facility] Last Admin: 03/24/17 09:20 Dose: 1 patch Nystatin (Nystop) 15 gm TP ASDIR PRN PRN Reason: franky Last Admin: 03/25/17 06:44 Dose: 15 gm Nystatin () 15 gm TOP ASDIR PRN PRN Reason: RASH Last Admin: 03/24/17 17:06 Dose: 15 gm Paroxetine HCl (Paxil) 40 mg PO DAILY [facility] Last Admin: 03/24/17 09:20 Dose: 40 mg Potassium Chloride (Klor-Con) 40 meq PO BID [facility] Last Admin: 03/24/17 21:59 Dose: 40 meq Ropinirole HCl (Requip) 4 mg PO QHS [facility] Last Admin: 03/24/17 21:59 Dose: 2 mg Sodium Chloride () 10 ml IVP 1500 [facility] Last Admin: 03/24/17 16:09 Dose: 10 ml Warfarin Sodium (Coumadin) 10 mg PO 1800 [facility] Last Admin: 03/24/17 17:06 Dose: 10 mg Warfarin Sodium (Coumadin) 3 mg PO 1800 [facility] Last Admin: 03/24/17 17:06 Dose: 3 mg Zinc Oxide (Desitin) 28.35 gm TOP ASDIR PRN PRN Reason: RASH Last Admin: 03/24/17 17:06 Dose: 28.35 gm Objective - Vital Signs Vital Signs: Vital Signs - Last 24 Hrs Temp Pulse Resp BP BP Pulse Ox 03/24/17 20:00 97.8 F 73 20 120/72 95 03/24/17 11:29 98.6 F 117/69 03/24/17 08:00 97.5 F L 81 18 130/83 95 - General General Appearance: Alert, Oriented x3, Cooperative, No acute distress - Head Head exam: Normal inspection - Eye Eye exam: Normal appearance, PERRL Pupils: Normal accommodation - ENT ENT exam: Normal exam, Mucous membranes moist, Normal external ear exam, Normal orophraynx, TM's normal bilaterally Ear exam: Normal external inspection. negative: External canal tenderness Nasal Exam: Normal inspection. negative: Discharge, Sinus tenderness Mouth exam: Normal external inspection, Tongue normal - Respiratory Respiratory exam: Normal lung sounds bilaterally. negative: Respiratory distress - Cardiovascular Cardiovascular Exam: Regular rate, Normal rhythm, Normal heart sounds Peripheral Pulses: 2+: Radial (R), Radial (L) - GI/Abdominal GI/Abdominal exam: Soft, Normal bowel sounds. negative: Tenderness - Rectal Rectal exam: Deferred - exam: Deferred - Extremities Extremities exam: Other (right hip edematous, clean dressing with drain to suction, improving erythema ) - Neurological Neurological exam: Alert, CN II-XII intact, Normal gait (ambulates with a walker ), Oriented X3, Reflexes normal - Psychiatric Psychiatric exam: Normal affect, Normal mood - Skin Skin exam: Erythema (erythema in the folds of the pannus; urticarial erythema of the abdomen adjacent to the folds) H&P Results - Labs Result Diagrams: 03/20/17 06:45 03/20/17 06:45 Discharge Potential - Discharge Needs Community Services Used Prior to Admission: Home Health Nurse Patient Discharge Plan Description: Return Home Community Services Needed at Discharge: Occupational Therapy, Physical Therapy Discharge Needs Comment: Either home health or outpatient infusion, doesn't care , just whichever is cheaper Plan - Swing Bed Certification Initial Certification Due: 03/10/17 14 Day Re-Cert Due: 03/24/17 44 Day Re-Cert Due: 04/23/17 74 Day Re-Cert Due: 05/23/17 - Detailed Diagnosis and Plan (1) Physical deconditioning Current Visit: Yes Status: Acute Base Code: R53.81 - OTHER [place] Comment : 03/27/17- improving. She is planning on discharging home on Tuesday. -continue pt/t m-f until discharge and then home pt/ot (2) Seroma, infected, postoperative Current Visit: Yes Status: Acute Base Code: [id number] - Comment: 03/27/17- patient currently receiving cubicin per Dr. Arellano, ID. She says at her appointment last week 03/21 he is planning on switching her to Vancomycin at discharge. -SW setting up home abx infusion vs outpatient vanc infusion through insurance -patient has follow up with dr. Arellano scheduled (3) Rash Current Visit: Yes Status: Acute Base Code: R21 - RASH AND OTHER NONSPECIFIC SKIN ERUPTION Comment: 03/27/17- erythema along pannus fold with urticarial wheals in adjacent skin. possible reaction to either the nystatin cream/powder or drug eruption 2/2 cubicin? -DC the nystatin cream/powder as it has not helped at all. oral diflucan did not see any improvement -benadryl somewhat helpful for pruritis -will try one time solumedrol 125mg IV along with topical hydrocortisone cream as needed for itching. -I will recheck her tomorrow to see if she has had any relief.
[2017-03-25] MEDS ORDERED: FLUCONAZOLE 100 MG TABLET PO ONE (09:49)
[2017-03-25] MEDS: NYSTATIN 15 GM TUBE TOP PRN (09:53)
[2017-03-25] MEDS: METHADONE HCL 5 MG TABLET PO SCH (09:53)
[2017-03-25] MEDS: PAROXETINE HCL 10 MG TABLET PO SCH (09:53)
[2017-03-25] MEDS: DOCUSATE SODIUM 100 MG CAPSULE PO SCH ×2 (09:53→22:43)
[2017-03-25] MEDS: ZINC OXIDE 28.35 GM TUBE TOP PRN (09:53)
[2017-03-25] MEDS: FUROSEMIDE 20 MG TABLET PO SCH ×2 (09:53→15:22)
[2017-03-25] MEDS: CLONAZEPAM 1MG TABLET PO SCH ×2 (09:53→22:43)
[2017-03-25] MEDS: GABAPENTIN 300 MG CAPSULE PO SCH ×3 (09:54→22:43)
[2017-03-25] MEDS: POTASSIUM CHLORIDE 20 MEQ TABLET PO SCH ×2 (09:54→22:43)
[2017-03-25] MEDS: CYCLOBENZAPRINE 10MG TABLET PO SCH ×3 (09:54→22:43)
[2017-03-25] MEDS: NICOTINE14 MG/24 HOUR PATCH TD SCH (09:54)
--- NOTE | 2017-03-25 13:30 | Rehab Discharge Summary ---
Patient Information - Patient Information Diagnosis: Cellulitis of R proximal, lateral thigh with underlying seroma Ordered Treatment: PT Evaluate and Treat History: Detail (Pt. reported hx of R hip replacement, L hip dislocation x2, L shd laproscopic sx x3, and dx of bilateral CTS in 2000.) Past Medical/Surgical Hx: PAST MEDICAL/SURGICAL HISTORY Past Surgical History tonsillectomy 1970 x1 left shoulder- "shaved the bone" laparscopic left shoulder torn ligaments repaired, then laparscopic surgery to remove apolinar Sep, 2012- Left hip replacement Dec, 2012- Right hip replacement Sep, 2016- left hip revision November,- left total hip replacement PMH - Respiratory Hx Respiratory Disorders Yes Hx Pulmonary Embolism Yes: 03/2016 Hx Sleep Apnea Yes Hx of CPAP No PMH - Cardiovascular Hx Cardiovascular Disorders Yes Hx Deep Vein Thrombosis Yes: multiple Hx Edema Yes Hx Palpitations Yes PMH - Neuro Hx Seizures No PMH - GI Hx Gastrointestinal Disorders Yes Hx Hepatitis/Jaundice Yes: hepatitis C PMH - Hx Genitourinary Disorders No PMH - Endocrine Hx Endocrine Disorders Yes Hx Thyroid Disease Yes PMH - Musculoskeletal Hx Musculoskeletal Disorders Yes Hx Arthritis Yes Hx Fibromyalgia Yes PMH - Psych Hx Psychiatric Problems Yes Hx Anxiety Yes Hx Depression Yes PMH - Hematology/Oncology Hx Bruising Yes: on coumadin Hx Clotting Problems Yes: protein C or protein S deficiency Hx Blood Transfusion Reaction No Premorbid Status: Detail (Pt. Ind. with all basic ADL's (bathing, dressing, meal prep, etc.). Pt. receives assistance from significant other with many IADL' s, including grocery shopping, laundry (d/t stairs), and heavy housework. Pt. reports she is able to use the kitchen, do dishes, and clean the bathroom independently. Pt. uses a 4WW for functional ambulation, except in the kitchen ( doesn't fit) where she uses the counter for support.) Social History: Detail (Pt. reports she lives in a single story apartment. Pt. does have to ascend 3 sets of 8 steps to get to her apartment building. There is a railing on both sides for each set of steps. Pt. lives with her significant other and states he is able to help as needed with tasks around the apartment. Pt. reports she has a raised toilet seat and a grab bar in her shower. Pt. denies the need of a shower chair and states she is able to remain standing while showering. Pt. reports she is able to perform most ADLs at home including dishes and cleaning of counters/bathroom and kitchen sinks. Pt. reports difficulty with any tasks that involves bending or squatting. Pt. is unable to vaccum , and not do her laundry because the laundry room is down stairs. Pt. reports no difficulty with ascending steps, but states it is difficult to descend steps. Pt. reports she ambulates with a front wheeled walker at all times. Pt. tried ambulating with a single point cane, but reports she felt unstable and was not comfortable using it. Pt. reports she is apprehensive to weight bear on L LE secondary to pain. Pt. also states she feels as if it is natural to weight bear more on her R side compared to the L. Pt. reports pain in her L hip at a 6/10 right now and doesn't report any discomfort in her right hip.) Precautions: [place], Fall - Time With Patient Total Time Spent With Patient (Min): 40 Treatment Procedures: Detail (Pt. reported pain in her R hip a 6/10 today. PT completed re-evaluation on pt assessing her strength and going over goals for PT. See strength section for measurements. See goal section for goals met, partially met, and not met. Pt. completed ther ex of 10 minutes on the treadmill at 1mph, and core strengthening exercise of supine supine core isometrics with alternating arm to leg raise, supine core isometric hands on bent knees slides, and supine core isometric with trunk side bending oblique muscle activatino. All exercises consisted of 2x10 repetitions.) Objective Data - Pain Pain Present: Yes Pain Intensity: 6 Pain Scale Used: Numeric (1 - 10) - Mental Status Patient Orientation: Oriented x3 - Visual Perception Appears within normal limits for therapeutic activities - ROM Within normal limits - Strength/Tone Not within normal limits (All LE strength WNL except for L hip flexion 3+/5, L hip ER 3+/5, R hip flexion 4/5, R hip ER 4-/5, Bilateral hip ABD 4-/5, bilateral hip ADD 4/5) - Coordination Appears within normal limits for therapeutic activities - Bed Mobility Independent - Transfers Independent (The patient was independent with all transfers including car , toilet and sit to and from stand transfer.) - Balance Balance Sitting: Good Balance Standing: Good - Sensation Intact - Gait Detail (Pt. ambulates with a four-wheeled walker and still exhibits decreased weight bearing on the the R LE. The patient ambulates a distance of 300 feet plus.) Therapy Assessment - Therapy Assessment Detail (Pt. still exhibits hip weakness (R>L), but has shown improvement since initial evaluation. Pt. exhibits decreased weight bearing and reports apprehension to bear weight on her R LE secondary to pain in her hip. Pt. reports that functional ADLs have been getting easier and pt. reports she was able to stand upright while pushing a cart at the store with no increase in pain in her L hip for the first time. Pt. verbalized understanding of her HEP and states that she is feeling stronger from her exercises.) Patient Education - Patient Education Teaching Topic: Exercise/Activity (The patient was instructed in core and LE strengthening exercises.) Response: Return Demonstration Teaching Method: Demonstration, Handout Teaching Recipient: Patient Barriers To Learning: None Problem List - Problem List Physical Therapy Problem List: Detail (1. LE muscle weakness 2. Gait impairments 3. Lack of home exercise plan 4. 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 Pt. will be independent with, verbalize, and demonstrate understanding of home exercise plan provided by PT. (Goal met). 2. Pt. will improve hip musculature strength to help improve gait mechanics while displaying minimal antalgic gattern and decreased hip ADD/IR with ambulation. ( Goal partially met). 3. Pt. will exhibit equal weight bearing of lower extremities while standing. (Not met). 4. Pt. will report decreased apprehension to weight bear on her L LE with standing and ambulation. (Not met) Occupational Therapy Goals: 1) Pt. will be independent in performing BUE HEP to increase strength. (met). 2) Pt. will demo. understanding of CTS dx and potential adaptive strategies to reduce dropping items. (met) Prognosis - Prognosis Good (Pt. is appropriate for discharge from physical therapy services.) Plan - Plan Physical Therapy Plan: Pt. is discharging from [facility] on 03/28 and is to continue her HEP independently. Occupational Therapy Plan: D/c pt. from OT services d/t goals met/completion of program. Pt. educ. to call rehab dept. if questions/concerns.
[2017-03-25] MEDS: HEPARIN SODIUM FLUSH 100 UNITS/ML SYR 5ML IVP SCH (15:22)
[2017-03-25] MEDS: 0.9 % SODIUM CHLORIDE 10ML SYR IVP SCH (15:22)
[2017-03-25] MEDS: DAPTOMYCIN 500 MG/VIAL IV SCH (15:22)
[2017-03-25] MEDS: WARFARIN 5 MG TAB PO SCH (17:53)
[2017-03-25] MEDS: HYDROCODONE/APAP 7.5/325MG TABLET PO PRN (18:07)
[2017-03-25] MEDS ORDERED: DIPHENHYDRAMINE HCL 25 MG CAPSULE PO ONE (18:26)
[2017-03-25] MEDS: ROPINIROLE HCL 1 MG TABLET PO SCH (22:43)
[2017-03-26] MEDS: LEVOTHYROXINE SODIUM 150 MCG TABLET PO SCH (06:09)
[2017-03-26] MEDS: ZINC OXIDE 28.35 GM TUBE TOP PRN (06:17)
[2017-03-26] MEDS: NYSTATIN 15 GM TUBE TOP PRN (06:17)
[2017-03-26] MEDS ORDERED: POLYETHYLENE GLY 17 GM PACKET PO PRN (09:35)
[2017-03-26] MEDS: METHADONE HCL 5 MG TABLET PO SCH (11:08)
[2017-03-26] MEDS: GABAPENTIN 300 MG CAPSULE PO SCH ×3 (11:09→21:17)
[2017-03-26] MEDS: DOCUSATE SODIUM 100 MG CAPSULE PO SCH ×2 (11:09→21:16)
[2017-03-26] MEDS: POTASSIUM CHLORIDE 20 MEQ TABLET PO SCH ×2 (11:09→21:17)
[2017-03-26] MEDS: FUROSEMIDE 20 MG TABLET PO SCH ×2 (11:10→15:34)
[2017-03-26] MEDS: CYCLOBENZAPRINE 10MG TABLET PO SCH ×3 (11:14→21:16)
[2017-03-26] MEDS: PAROXETINE HCL 10 MG TABLET PO SCH (11:14)
[2017-03-26] MEDS: NICOTINE14 MG/24 HOUR PATCH TD SCH (11:14)
[2017-03-26] MEDS: CLONAZEPAM 1MG TABLET PO SCH ×2 (11:14→21:17)
[2017-03-26] MEDS: BIFIDOBACTERIUM INFANTIS 4 MG CAPSULE PO SCH (11:17)
[2017-03-26] MEDS: HYDROCODONE/APAP 7.5/325MG TABLET PO PRN (14:48)
[2017-03-26] MEDS: DAPTOMYCIN 500 MG/VIAL IV SCH (15:32)
[2017-03-26] MEDS: 0.9 % SODIUM CHLORIDE 10ML SYR IVP SCH (15:32)
[2017-03-26] MEDS: HEPARIN SODIUM FLUSH 100 UNITS/ML SYR 5ML IVP SCH (15:33)
[2017-03-26] MEDS: WARFARIN 5 MG TAB PO SCH (18:09)
[2017-03-26] MEDS: WARFARIN 1 MG TABLET PO SCH (18:11)
[2017-03-26] MEDS: DIPHENHYDRAMINE HCL 25 MG CAPSULE PO PRN (21:17)
[2017-03-26] MEDS: ROPINIROLE HCL 1 MG TABLET PO SCH (21:17)
[2017-03-27] MEDS: DIPHENHYDRAMINE HCL 25 MG CAPSULE PO PRN ×4 (00:58→22:31)
[2017-03-27] MEDS: HYDROCODONE/APAP 7.5/325MG TABLET PO PRN ×2 (00:59→14:03)
[2017-03-27] MEDS: LEVOTHYROXINE SODIUM 150 MCG TABLET PO SCH (06:08)
[2017-03-27] MEDS ORDERED: CLOBETASOL PROPIONATE 30 GM TUBE TOP PRN (07:48)
[2017-03-27 10:47] LABS: INR 2.58; PROTHROMBIN TIME (PATIENT) 28.1 SECONDS (9.5-12.1)
[2017-03-27] MEDS ORDERED: HYDROCORTISONE 2.5% TOP PRN (10:51)
[2017-03-27] MEDS: BIFIDOBACTERIUM INFANTIS 4 MG CAPSULE PO SCH (11:03)
[2017-03-27] MEDS: CYCLOBENZAPRINE 10MG TABLET PO SCH ×3 (11:04→22:15)
[2017-03-27] MEDS: CLONAZEPAM 1MG TABLET PO SCH ×2 (11:04→22:15)
[2017-03-27] MEDS: GABAPENTIN 300 MG CAPSULE PO SCH ×3 (11:04→22:15)
[2017-03-27] MEDS: DOCUSATE SODIUM 100 MG CAPSULE PO SCH ×2 (11:04→22:15)
[2017-03-27] MEDS: PAROXETINE HCL 10 MG TABLET PO SCH (11:04)
[2017-03-27] MEDS: FUROSEMIDE 20 MG TABLET PO SCH ×2 (11:04→15:17)
[2017-03-27] MEDS: METHADONE HCL 5 MG TABLET PO SCH (11:04)
[2017-03-27] MEDS: NICOTINE14 MG/24 HOUR PATCH TD SCH (11:05)
[2017-03-27] MEDS: POTASSIUM CHLORIDE 20 MEQ TABLET PO SCH ×2 (11:08→22:14)
[2017-03-27] MEDS ORDERED: METHYLPREDNISOLONE PF 125MG/VIAL IVP ONE (11:55)
[2017-03-27] MEDS ORDERED: TRIAMCINOLONE ACET 0.1% CREAM 15G TUBE TOP SCH (14:00)
[2017-03-27] MEDS ORDERED: HYDROCORTISONE 1% CREAM 28.35 GM TUBE TOP PRN (14:27)
[2017-03-27] MEDS: DAPTOMYCIN 500 MG/VIAL IV SCH (15:17)
[2017-03-27] MEDS: HEPARIN SODIUM FLUSH 100 UNITS/ML SYR 5ML IVP SCH (15:17)
[2017-03-27] MEDS: 0.9 % SODIUM CHLORIDE 10ML SYR IVP SCH (15:17)
[2017-03-27] MEDS: WARFARIN 5 MG TAB PO SCH (19:30)
[2017-03-27] MEDS: WARFARIN 1 MG TABLET PO SCH (19:31)
[2017-03-27] MEDS: ROPINIROLE HCL 1 MG TABLET PO SCH (22:15)
[2017-03-28] MEDS: LEVOTHYROXINE SODIUM 150 MCG TABLET PO SCH (06:18)
[2017-03-28] MEDS: DIPHENHYDRAMINE HCL 25 MG CAPSULE PO PRN ×4 (06:18→21:25)
[2017-03-28] MEDS ORDERED: METHYLPREDNISOLONE PF 125MG/VIAL IVP SCH (10:00)
[2017-03-28] MEDS: METHADONE HCL 5 MG TABLET PO SCH (10:06)
[2017-03-28] MEDS: NICOTINE14 MG/24 HOUR PATCH TD SCH (10:07)
[2017-03-28] MEDS: PAROXETINE HCL 10 MG TABLET PO SCH (10:07)
[2017-03-28] MEDS: 0.9 % SODIUM CHLORIDE 10ML SYR IVP SCH ×2 (10:07→15:22)
[2017-03-28] MEDS: FUROSEMIDE 20 MG TABLET PO SCH ×2 (10:07→17:05)
[2017-03-28] MEDS: GABAPENTIN 300 MG CAPSULE PO SCH ×3 (10:07→21:22)
[2017-03-28] MEDS: BIFIDOBACTERIUM INFANTIS 4 MG CAPSULE PO SCH (10:07)
[2017-03-28] MEDS: DOCUSATE SODIUM 100 MG CAPSULE PO SCH ×2 (10:07→21:21)
[2017-03-28] MEDS: CLONAZEPAM 1MG TABLET PO SCH ×2 (10:07→21:21)
[2017-03-28] MEDS: CYCLOBENZAPRINE 10MG TABLET PO SCH ×3 (10:07→21:21)
[2017-03-28] MEDS: POTASSIUM CHLORIDE 20 MEQ TABLET PO SCH ×2 (10:07→21:22)
[2017-03-28] MEDS: HEPARIN SODIUM FLUSH 100 UNITS/ML SYR 5ML IVP SCH ×2 (10:08→15:22)
[2017-03-28] MEDS: RANITIDINE HCL 150 MG TABLET PO SCH ×2 (10:11→21:22)
[2017-03-28] MEDS ORDERED: MAGNESIUM HYDROXIDE 30 ML UDC PO PRN (10:12)
[2017-03-28 10:16] LABS: BASO % 0.2 % (0-6); EOS % 0.2 % (0-6); GRAN % 71.5 % (47-80); HEMATOCRIT 37.4 % (35.0-47.0); HEMOGLOBIN 12.2 gm/dl (11.6-16.0); LYMPH % 18.5 % (16-45); MEAN CORPUSCULAR HEMOGLOBIN 28.7 pg (27-33); MEAN CORPUSCULAR HGB CONC 32.6 g/dl (32-36); MEAN PLATELET VOLUME 10.4 fl (7.4-10.4); MONO % 9.6 % (0-9); PLATELET COUNT 351 K/uL (130-400); RED BLOOD COUNT 4.25 M/uL (3.80-5.40); WHITE BLOOD COUNT W/O DIFF 10.1 K/uL (4.2-12.2)
[2017-03-28 10:23] LABS: BLOOD UREA NITROGEN 13 mg/dL (6-20)
[2017-03-28 10:24] LABS: CREATININE 0.7 mg/dL (0.5-0.9); EST GLOMERULAR FILTRATION RATE > 60 mL/min; TOTAL PROTEIN 7.5 g/dL (6.6-8.7)
[2017-03-28 10:26] LABS: GLUCOSE,RANDOM 110 mg/dL (74-109)
[2017-03-28 10:29] LABS: ALBUMIN 3.8 g/dL (4.0-5.0); ALKALINE PHOSPHATASE 94 U/L (35-104); ALT/SGPT 12 U/L (<33); AST/SGOT 18 U/L (10.0-35.0)
[2017-03-28] MEDS: HYDROCODONE/APAP 7.5/325MG TABLET PO PRN (13:15)
[2017-03-28] MEDS: WARFARIN 1 MG TABLET PO SCH (17:05)
[2017-03-28] MEDS: WARFARIN 5 MG TAB PO SCH (17:05)
[2017-03-28] MEDS ORDERED: PREDNISONE 20 MG TAB PO ONE (19:28)
[2017-03-28] MEDS: LORATADINE 10 MG TABLET PO SCH (20:15)
[2017-03-28] MEDS: VANCOMYCIN HCL IV SCH (20:16)
[2017-03-28] MEDS: SODIUM CHLORIDE 0.9% IV SCH (20:16)
[2017-03-28] MEDS: ROPINIROLE HCL 1 MG TABLET PO SCH (21:22)
[2017-03-29] MEDS: DIPHENHYDRAMINE HCL 25 MG CAPSULE PO PRN ×4 (05:22→21:13)
[2017-03-29] MEDS: LEVOTHYROXINE SODIUM 150 MCG TABLET PO SCH ×2 (05:23→06:23)
[2017-03-29] MEDS: SODIUM CHLORIDE 0.9% IV SCH ×2 (07:34→20:00)
[2017-03-29] MEDS: VANCOMYCIN HCL IV SCH ×2 (07:34→20:00)
[2017-03-29] MEDS: 0.9 % SODIUM CHLORIDE 10ML SYR IVP SCH ×2 (07:34→14:16)
[2017-03-29] MEDS: RANITIDINE HCL 150 MG TABLET PO SCH ×2 (09:43→21:14)
[2017-03-29] MEDS: CLONAZEPAM 1MG TABLET PO SCH ×2 (09:43→21:13)
[2017-03-29] MEDS: CYCLOBENZAPRINE 10MG TABLET PO SCH ×3 (09:43→21:14)
[2017-03-29] MEDS: POTASSIUM CHLORIDE 20 MEQ TABLET PO SCH ×2 (09:43→21:14)
[2017-03-29] MEDS: LORATADINE 10 MG TABLET PO SCH (09:43)
[2017-03-29] MEDS: METHADONE HCL 5 MG TABLET PO SCH (09:43)
[2017-03-29] MEDS: DOCUSATE SODIUM 100 MG CAPSULE PO SCH ×2 (09:43→21:13)
[2017-03-29] MEDS: GABAPENTIN 300 MG CAPSULE PO SCH ×3 (09:43→21:14)
[2017-03-29] MEDS: NICOTINE14 MG/24 HOUR PATCH TD SCH (09:43)
[2017-03-29] MEDS: PAROXETINE HCL 10 MG TABLET PO SCH (09:43)
[2017-03-29] MEDS: BIFIDOBACTERIUM INFANTIS 4 MG CAPSULE PO SCH (09:44)
[2017-03-29] MEDS: FUROSEMIDE 20 MG TABLET PO SCH ×2 (09:44→15:43)
--- NOTE | 2017-03-29 12:18 | Discharge Summary ---
Providers Discharge Summary Date: 03/29/17 Date of admission: 03/10/17 15:51 Attending physician: Corby Chacko Primary care physician: EMILIANO MUÑIZ M.D. Physical Exam - Vital Signs Vital Signs: Vital Signs - Last 24 Hrs Temp Pulse Pulse Resp BP Pulse Ox 03/29/17 08:00 97.6 F 75 18 129/72 96 03/28/17 19:58 97.9 F 77 20 132/81 96 - General General Appearance: Alert, Oriented x3, Cooperative, No acute distress - Head Head exam: Normal inspection - Eye Eye exam: Normal appearance, PERRL Pupils: Normal accommodation - ENT ENT exam: Normal exam, Mucous membranes moist, Normal external ear exam, Normal orophraynx, TM's normal bilaterally Ear exam: Normal external inspection. negative: External canal tenderness Nasal Exam: Normal inspection. negative: Discharge, Sinus tenderness Mouth exam: Normal external inspection, Tongue normal - Respiratory Respiratory exam: Normal lung sounds bilaterally. negative: Respiratory distress - Cardiovascular Cardiovascular Exam: Regular rate, Normal rhythm, Normal heart sounds Peripheral Pulses: 2+: Radial (R), Radial (L) - GI/Abdominal GI/Abdominal exam: Soft, Normal bowel sounds. negative: Tenderness - Rectal Rectal exam: Deferred - exam: Deferred - Extremities Extremities exam: Other (right hip edematous, clean dressing with drain to suction, improving erythema ) - Neurological Neurological exam: Alert, CN II-XII intact, Normal gait (ambulates with a walker ), Oriented X3, Reflexes normal - Psychiatric Psychiatric exam: Normal affect, Normal mood - Skin Skin exam: Erythema (erythema in the folds of the pannus; urticarial erythema of the abdomen adjacent to the folds), Rash (intertigous area and bilateral axillary/breast ) Distribution of rash: Chest Description of rash: Erythematous Hospitalization - Hospitalization Admission Diagnosis: Cellulitis of right proximal, lateral thigh with unerlying seroma and drain placement following hip replacement - Problem List (1) Seroma, infected, postoperative Current Visit: Yes Status: Acute Base Code: [id number] - Comment: 03/29/17 patient currently on Vancomycin IV per Dr. Arellano, RADHA which she will remain on for another 4 weeks. Home abx infusion has been planned as per SW. Continued outpatient management of drain and abx as per IR/ID respectively. (2) MRSA (methicillin resistant staph aureus) culture positive Current Visit: Yes Status: Acute Base Code: Z22.322 - CARRIER OR SUSPECTED CARRIER OF METHICILLIN RESIS STAPH (3) Fibromyalgia Current Visit: Yes Status: Acute Base Code: M79.7 - FIBROMYALGIA (4) Depression with anxiety Current Visit: Yes Status: Acute Base Code: F41.8 - OTHER SPECIFIED ANXIETY DISORDERS (5) History of bilateral total hip arthroplasty Current Visit: Yes Status: Acute Base Code: Z96.643 - PRESENCE OF ARTIFICIAL HIP JOINT, BILATERAL (6) Hypothyroid Current Visit: Yes Status: Acute Base Code: E03.9 - HYPOTHYROIDISM, UNSPECIFIED (7) History of heroin abuse Current Visit: Yes Status: Acute Base Code: Z87.898 - PERSONAL HISTORY OF OTHER SPECIFIED CONDITIONS (8) History of DVT (deep vein thrombosis) Current Visit: Yes Status: Acute Base Code: Z86.718 - PERSONAL HISTORY OF OTHER VENOUS THROMBOSIS AND EMBOLISM (9) Obesity, morbid, BMI 50 or higher Current Visit: Yes Status: Acute Base Code: E66.01 - MORBID (SEVERE) OBESITY DUE TO EXCESS CALORIES (10) Inpatient admission status Current Visit: Yes Status: Acute Base Code: [id number] - (11) Code status needs review Current Visit: Yes Status: Acute Base Code: [id number] - - Hospitalization Course Disposition: Home, Self-Care Reason For Discharge/Transfer: Medical Stability Abnormal Labs: Abnormal Lab Results 03/11/17 03/13/17 03/16/17 Range/Units 10:28 09:00 11:30 Gran % (47-80) % Monocytes % (0-9) % ESR (0-30) mm/hr PT 21.9 H 22.6 H 21.5 H (9.5-12.1) SECONDS Carbon Dioxide (22-29) mmol/L Random Glucose (74-109) mg/dL Albumin (4.0-5.0) g/dL Albumin/Globulin Ratio (1.1-1.8) 03/19/17 03/20/17 03/20/17 Range/Units 11:57 06:45 06:45 Gran % 39.9 L (47-80) % Monocytes % 11.1 H (0-9) % ESR (0-30) mm/hr PT 21.4 H 23.8 H (9.5-12.1) SECONDS Carbon Dioxide (22-29) mmol/L Random Glucose (74-109) mg/dL Albumin (4.0-5.0) g/dL Albumin/Globulin Ratio (1.1-1.8) 03/20/17 03/22/17 03/23/17 Range/Units 06:45 10:36 15:34 Gran % (47-80) % Monocytes % (0-9) % ESR 80 H (0-30) mm/hr PT 23.7 H (9.5-12.1) SECONDS Carbon Dioxide 31.0 H (22-29) mmol/L Random Glucose (74-109) mg/dL Albumin (4.0-5.0) g/dL Albumin/Globulin Ratio (1.1-1.8) 03/27/17 03/28/17 03/28/17 Range/Units 10:30 09:19 10:00 Gran % (47-80) % Monocytes % 9.6 H (0-9) % ESR (0-30) mm/hr PT 28.1 H (9.5-12.1) SECONDS Carbon Dioxide (22-29) mmol/L Random Glucose 110 H (74-109) mg/dL Albumin 3.8 L (4.0-5.0) g/dL Albumin/Globulin Ratio 1.0 L (1.1-1.8) Condition at Discharge: (2) Stable Discharge Medications - Discharge Medications Prescriptions: Bifidobacterium Infantis [Align] 4 mg PO DAILY #20 capsule Docusate Sodium [Colace] 100 mg PO BID #60 cap Hydrocodone/Acetaminophen [Timber 7.5-325 Tablet] 1 each PO DAILY #14 tablet Loratadine [Claritin] 10 mg PO DAILY #30 tablet Nicotine [Nicotine 7Mg] 1 patch TD DAILY #14 patch Ranitidine HCl [Zantac] 150 mg PO BID #60 tablet Home Medications: Ambulatory Orders Clonazepam 1 mg PO BID 03/10/17 [Last Taken Unknown] Cyclobenzaprine HCl 10 mg PO TID 03/10/17 [Last Taken Unknown] Furosemide [Lasix] 20 mg PO BID 03/10/17 [Last Taken Unknown] Gabapentin [Neurontin] 300 mg PO TID 03/10/17 [Last Taken Unknown] Levothyroxine Sodium [Synthroid] 150 mcg PO DAILY 03/10/17 [Last Taken Unknown] Methadone HCl [Methadose] 35 mg PO DAILY 03/10/17 [Last Taken Unknown] Paroxetine HCl [Paxil] 40 mg PO DAILY 03/10/17 [Last Taken Unknown] Potassium Chloride 40 meq PO BID 03/10/17 [Last Taken Unknown] Ropinirole HCl [Requip] 4 mg PO QHS 03/10/17 [Last Taken Unknown] Warfarin Sodium [Coumadin] 3 mg PO QHS 03/10/17 [Last Taken Unknown] Warfarin Sodium [Coumadin] 10 mg PO QHS 03/10/17 [Last Taken Unknown] Bifidobacterium Infantis [Align] 4 mg PO DAILY #20 capsule 03/29/17 [Last Taken Unknown] Clonazepam [Klonopin] 1 mg PO BID tablet 03/29/17 [Last Taken Unknown] Cyclobenzaprine HCl [Flexeril] 10 mg PO TID tablet 03/29/17 [Last Taken Unknown ] Docusate Sodium [Colace] 100 mg PO BID #60 cap 03/29/17 [Last Taken Unknown] Hydrocodone/Acetaminophen [Timber 7.5-325 Tablet] 1 each PO DAILY #14 tablet [Last Taken Unknown] Loratadine [Claritin] 10 mg PO DAILY #30 tablet 03/29/17 [Last Taken Unknown] Methadone HCl [Dolophine] 35 mg PO DAILY tablet 03/29/17 [Last Taken Unknown] Nicotine [Nicotine 7Mg] 1 patch TD DAILY #14 patch 03/29/17 [Last Taken Unknown] Paroxetine HCl [Paxil] 40 mg PO DAILY tablet 03/29/17 [Last Taken Unknown] Polyethylene Glycol 3350 [Miralax] 17 gm PO DAILY PRN packet 03/29/17 [Last Taken Unknown] Potassium Chloride [Klor-Con] 40 meq PO BID tablet.sa 03/29/17 [Last Taken Unknown] Ranitidine HCl [Zantac] 150 mg PO BID #60 tablet 03/29/17 [Last Taken Unknown] Warfarin Sodium [Coumadin] 3 mg PO 1800 tablet 03/29/17 [Last Taken Unknown] Warfarin Sodium [Coumadin] 10 mg PO 1800 tablet 03/29/17 [Last Taken Unknown] Discharge Plan - Discharge Instructions Activity at Discharge: Increase Activity as Tolerated Diet at Discharge: Regular Diet Quality Measures - Quality Measures Quality Measures: Documentation of Current Medications in Medical Record, Screening for High Blood Pressure and F/U Documented - Current Medications Quality Measure: Measure #130: Documentation of Current Medications - Blood Pressure Screening Quality Measure: Screening for High Blood Pressure and Follow-Up Documented Blood Pressure Classification: Normal BP Reading Systolic Measurement: 117 Diastolic Measurement: 69 Screening for High Blood Pressure: < Normal BP, F/U Not Required > [G8783] - Elder Abuse Suspicion Index EASI Reference Information: Cm PARKER, Beatrice C, Marvin D, Carine Garrison.Development and validation of a tool to assist physicians identification of elder abuse: The Elder Abuse Suspicion Index (EASI ). Journal of Elder Abuse and Neglect, 2008; 20 (3): 276-300.
[2017-03-29 13:40] LABS: INR 3.06; PROTHROMBIN TIME (PATIENT) 33.4 SECONDS (9.5-12.1)
[2017-03-29] MEDS: HEPARIN SODIUM FLUSH 100 UNITS/ML SYR 5ML IVP SCH ×2 (14:16→15:22)
[2017-03-29] MEDS: HYDROCODONE/APAP 7.5/325MG TABLET PO PRN ×2 (14:24→21:14)
[2017-03-29] MEDS: WARFARIN 5 MG TAB PO SCH (17:38)
[2017-03-29] MEDS: ROPINIROLE HCL 1 MG TABLET PO SCH (21:14)
== END 2017-03-29 22:24 | disposition home or self-care (01) | DRG 603 ==
LOC: MEDSURG 15:51
PROVIDERS: ADMIT Internal Medicine; ATTEND Internal Medicine
DX: L03.115 Cellulitis of right lower limb (principal); D68.59 Other primary thrombophilia; B95.62 Methicillin resistant Staphylococcus aureus infection as the cause of diseases classified elsewhere; Z86.718 Personal history of other venous thrombosis and embolism; Z79.01 Long term (current) use of anticoagulants; Z72.0 Tobacco use; E03.9 Hypothyroidism, unspecified; M79.9 Soft tissue disorder, unspecified; B18.2 Chronic viral hepatitis C; F41.8 Other specified anxiety disorders; Z22.322 Carrier or suspected carrier of Methicillin resistant Staphylococcus aureus; Z96.643 Presence of artificial hip joint, bilateral; E66.01 Morbid (severe) obesity due to excess calories; R53.81 Other malaise; R21 Rash and other nonspecific skin eruption; F11.21 Opioid dependence, in remission
CPT/HCPCS: 80048; 80053; 85025; 85610; 85651; 97110; 97165; 97530; 99306; 99309; 99316; J0878; J2930; J7040; J7512; S0109